=== PATIENT | female | born 1950 | race Caucasian/White ===

== ENCOUNTER → 2016-12-04 | Outpatient (CLI) | payer BC ==
[~2016-12-04] MED LIST: ALPR0.5T72 PO; AMLO1TAB4 PO; CALC-732 PO; CITA20TA12 PO; ENAL20TA PO; ESTR0.9T PO; HYDR1TAB PO; K-VANC1PB IV; LEVO137T24 PO; LIOT5TAB3 PO; LVT.112T PO; MELO-195 PO; NALT1TAB PO; OMEP-10 PO; PANT20TA2 PO; POTA20PI PO; [UNRECOGNIZED DRUG - CODE] PO
== END ==
LOC: RAD 10:05
PROVIDERS: ATTEND Nurse Practitioner
DX: Z12.31 Encounter for screening mammogram for malignant neoplasm of breast (principal)
CPT/HCPCS: 77067

== ENCOUNTER → 2017-03-05 | Outpatient (CLI) | payer BC ==
--- NOTE | 2017-03-05 13:49 | Diagnostic Imaging Report ---
Neck ultrasound. INDICATION: Thyroid cancer. FINDINGS: The thyroidectomy bed is evaluated with no underlying mass seen. No lymphadenopathy is seen around the thyroidectomy bed. IMPRESSION: No soft tissue mass is identified. Dictated by: Dictated on workstation # [id number]
== END ==
LOC: RAD 09:12
PROVIDERS: ATTEND Internal Medicine Endocrinology, Diabetes & Metabolism
DX: Z85.850 Personal history of malignant neoplasm of thyroid (principal)
CPT/HCPCS: 76536

== ENCOUNTER → 2018-02-16 | Outpatient (CLI) | payer MEDICARE ==
--- NOTE | 2018-02-16 13:56 | Diagnostic Imaging Report ---
INDICATION: Routine screening. Comparison is made with prior mammograms from 12/04/2016 and 11/09/2015. 2-D and 3-D bilateral screening mammography was performed with CAD. The current study was also evaluated with a Computer Aided Detection (CAD) system. FINDINGS: Both breasts show marked parenchymal heterogeneity and increased density, limiting the sensitivity of mammography. The parenchymal pattern is stable. Nodular density in the far posterior right breast on the MLO view just above the nipple line appears stable when compared with prior mammograms. No new mass or malignant-appearing microcalcifications are seen. The axillae are unremarkable. IMPRESSION: No mammographic features suspicious for malignancy are identified. ACR BI-RADS Category 2: Benign findings. Result letter will be mailed to the patient. Note: At least 10% of breast cancer is not imaged by mammography. Dictated by: Dictated on workstation # [id number]
== END ==
LOC: RAD 09:58
PROVIDERS: ATTEND Obstetrics & Gynecology
DX: Z12.31 Encounter for screening mammogram for malignant neoplasm of breast (principal)
CPT/HCPCS: 77067

== ENCOUNTER → 2018-03-23 | Outpatient (CLI) | payer MEDICARE ==
--- NOTE | 2018-03-23 09:26 | Diagnostic Imaging Report ---
EXAM: RIGHT UPPER QUADRANT ULTRASOUND DATE: March 23, 2018. COMPARISON: None. INDICATION: 67-year-old female, right upper quadrant abdominal pain. PROCEDURE: Two-dimensional grayscale and color doppler ultrasound examination of the right upper quadrant is performed. FINDINGS: Liver: The liver is of normal size and echotexture without solid or cystic masses. The main portal vein is patent with normal directional flow. Bile ducts and gallbladder: There is no pericholecystic fluid, gallbladder wall thickening or gallstones. The gallbladder wall measures 0.2 cm. There is no intrahepatic or extrahepatic biliary ductal dilation. The common bile duct measures 0.6 cm. Right kidney: Unremarkable right kidney. No hydronephrosis. The right kidney measures 11.9 cm x 4.3 cm x 4.9 cm. Pancreas: Normal visualized pancreas. IMPRESSION: 1. Unremarkable right upper quadrant abdominal ultrasound. Dictated by: Dictated on workstation # [id number]
== END ==
LOC: RAD 07:30
PROVIDERS: ATTEND Nurse Practitioner Family
DX: K81.9 Cholecystitis, unspecified (principal)
CPT/HCPCS: 76705

== ENCOUNTER → 2018-06-23 | Outpatient (CLI) | payer MEDICARE ==
--- NOTE | 2018-06-23 09:28 | Diagnostic Imaging Report ---
PROCEDURE: MRI lumbar spine. TECHNIQUE: Multiplanar, multisequence MRI of the lumbar spine was performed without contrast. INDICATION: Low back pain radiating to right lower extremity. COMPARISON: None. FINDINGS: There are five lumbar type vertebral bodies for the purposes of this report. Grade 1 retrolisthesis of L4 on L5. Alignment is otherwise unremarkable. Moderate diffuse degenerative endplate changes are greatest at L4-L5. Bone marrow signal is otherwise normal. No abnormal signal in the conus which terminates at L1-L2. Normal morphology of the cauda equina. No acute findings in the visualized abdomen or pelvis. L1-L2: No spinal canal, lateral recess or neural foraminal narrowing. L2-L3: Annular disc bulge and facet arthropathy contribute to mild bilateral lateral recess narrowing. No spinal canal or neural foraminal narrowing. L3-L4: Annular disc bulge and facet arthropathy contribute to mild bilateral neural foraminal narrowing. No substantial spinal canal narrowing. Disc space height loss also contributes to mild right neural foraminal narrowing. L4-L5: Right paracentral disc protrusion contributes to moderate right lateral recess and right neural foraminal narrowing. Disc space height loss also contributes to moderate left neural foraminal narrowing. No substantial spinal canal narrowing. L5-S1: Disc space height loss and facet arthropathy contribute to moderate right neural foraminal narrowing. No substantial spinal canal, lateral recess or left neural foraminal narrowing. IMPRESSION: 1. 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 No high-grade spinal canal narrowing. 2. No acute osseous findings. Dictated by: Dictated on workstation # [id number]
== END ==
LOC: RAD 08:05
PROVIDERS: ATTEND Family Medicine
DX: M47.27 Other spondylosis with radiculopathy, lumbosacral region (principal); M48.07 Spinal stenosis, lumbosacral region
CPT/HCPCS: 72148

== ENCOUNTER → 2019-03-29 | Outpatient (CLI) | payer MEDICARE ==
--- NOTE | 2019-03-29 10:56 | Diagnostic Imaging Report ---
Digital mammogram. Bilateral screening. This study was compared to the prior exam of 02/16/2018, 12/04/2016 and 11/09/2015. At this time there are no current complaints. The current study was also evaluated with a Computer Aided Detection (CAD) system. FINDINGS: The fibroglandular tissue in both breasts is heterogeneously dense. This does limit the sensitivity of this exam. Overall, there does not appear to have been any significant change when compared to the prior study. No primary or secondary sign of malignancy is noted. IMPRESSION: There is no radiographic evidence for malignancy. ACR BI-RADS Category 1: Negative. Result letter will be mailed to the patient. Note: At least 10% of breast cancer is not imaged by mammography. Dictated by: Dictated on workstation # [id number]
== END ==
LOC: RAD 07:08
PROVIDERS: ATTEND Obstetrics & Gynecology
DX: Z12.31 Encounter for screening mammogram for malignant neoplasm of breast (principal)
CPT/HCPCS: 77067

== ENCOUNTER → 2019-04-11 | Outpatient (CLI) | payer MEDICARE ==
[~2019-04-11] MED LIST changes: +AMLO1TAB99 PO; +CHOL200025 PO; +CHOL500049 PO; +CITA20TA9 PO; +CYAN500T62 PO; +GABA-488 PO; +HYDR25TA4 PO; +LEVO125T6 PO; +MELO15TA39 PO; +PANT40TA3 PO
--- NOTE | 2019-04-11 10:27 | Diagnostic Imaging Report ---
PROCEDURE: MRI left joint lower extremity without contrast. TECHNIQUE: Multiplanar, multisequence non contrast-enhanced MRI of the left lower extremity was accomplished. INDICATION: Left knee pain. No known injury. Chronic pain. COMPARISON: Radiograph from 04/11/2014. FINDINGS: Due to body habitus, the second alternate knee coil was used, resulting in some signal loss. No acute fracture is seen in the left knee. Alignment is normal. There is severe degenerative change in the medial and lateral compartments as well as in the patellofemoral compartment, with subchondral cystlike changes and large osteophytes. There is a moderate left knee joint effusion. The articular cartilage in the patellofemoral compartment demonstrates heterogeneity and surface irregularity without large full-thickness defects seen. The articular cartilage in the medial and lateral compartments demonstrate full-thickness cartilage loss at the weightbearing aspect, more pronounced medially. There is predominately horizontal tearing of the posterior horn of the medial meniscus, with maceration and complex tearing at the body. The lateral meniscus demonstrates complex tearing and maceration as well. The anterior and posterior cruciate ligaments are intact. The medial collateral ligament is intact. The lateral collateral ligamentous complex appears intact. The medial and lateral retinacula are intact. There is mild tendinopathy of the proximal patellar tendon. No soft tissue fluid collections or masses are seen. IMPRESSION: 1. Advanced tricompartmental degenerative changes in the left knee, most pronounced in the medial compartment. 2. Extensive complex tearing and maceration of the medial and lateral menisci. 3. Tendinopathy of the proximal patellar tendon. 4. Moderate left knee joint effusion. Dictated by: Dictated on workstation # [id number]
== END ==
LOC: RAD 07:51
PROVIDERS: ATTEND Family Medicine
DX: M17.12 Unilateral primary osteoarthritis, left knee (principal); S83.282A Other tear of lateral meniscus, current injury, left knee, initial encounter; S83.242A Other tear of medial meniscus, current injury, left knee, initial encounter; M67.864 Other specified disorders of tendon, left knee; M25.462 Effusion, left knee
CPT/HCPCS: 73721

== ENCOUNTER 2019-06-07 05:39 | Outpatient (CLI) | payer MEDICARE ==
[~2019-06-07] VITALS: Ht 180 cm; Wt 115.0 kg
[~2019-06-07 05:39] MED LIST changes: -AMLO1TAB99 PO; -CHOL200025 PO; -CHOL500049 PO; -CITA20TA9 PO; -CYAN500T62 PO; -GABA-488 PO; -HYDR25TA4 PO; -LEVO125T6 PO; -MELO15TA39 PO; -PANT40TA3 PO
[2019-06-07] MEDS ORDERED: CHOL500049 PO (15:06)
[2019-06-07] MEDS ORDERED: HYDR25TA4 PO (15:06)
[2019-06-07] MEDS ORDERED: CYAN500T62 PO (15:06)
[2019-06-07] MEDS ORDERED: GABA-488 PO (15:06)
[2019-06-07] MEDS ORDERED: CHOL200025 PO (15:06)
[2019-06-07] MEDS ORDERED: CITA20TA9 PO (15:06)
[2019-06-07] MEDS ORDERED: AMLO1TAB99 PO (15:06)
[2019-06-07] MEDS ORDERED: ESTR0.9T PO (15:06)
[2019-06-07] MEDS ORDERED: MELO15TA39 PO (15:06)
[2019-06-07] MEDS ORDERED: LEVO125T6 PO (15:06)
[2019-06-07] MEDS ORDERED: PANT40TA3 PO (15:06)
== END 2019-06-09 10:53 | disposition home or self-care (01) ==
LOC: PREOP 05:39
PROVIDERS: ATTEND Specialist
DX: Z01.818 Encounter for other preprocedural examination (principal)

== ENCOUNTER 2019-06-10 09:03 | Day surgery (SDC) | payer MEDICARE ==
[~2019-06-10] VITALS: Ht 180 cm; Wt 115.0 kg
[~2019-06-10 09:03] MED LIST changes: +AMLO1TAB99 PO; +CHOL200025 PO; +CHOL500049 PO; +CITA20TA9 PO; +CYAN500T62 PO; +GABA-488 PO; +HYDR25TA4 PO; +LEVO125T6 PO; +MELO15TA39 PO; +PANT40TA3 PO
[2019-06-10 09:05] VITALS: BP 129/78
[2019-06-10] MEDS ORDERED: POVIDONE (BETADINE) OPHTH SOLN 5% 30 ML OP ONE (09:15)
[2019-06-10] MEDS ORDERED: MOXIFLOXACIN OPHTH SOLN 5 MG/ML 0.3 ML SYRINGE OP ONE (09:15)
[2019-06-10] MEDS ORDERED: LIDOCAINE PF 1% 2 ML VIAL IR PRN (09:15)
[2019-06-10] MEDS ORDERED: TIMOLOL MALEATE 0.5% 5 ML (TIMOPTIC) BTL OU PRN (09:15)
[2019-06-10] MEDS: TETRACAINE 0.5% OPHTH SOLN 4 ML BTL (SINGLE DOSE ONLY) OU PRN ×4 (09:22→09:57)
[2019-06-10] MEDS: PHENYLEPHRINE 10% OPHTH (NEO-SYN) 5 ML BTL OU SCH ×3 (09:36→09:57)
[2019-06-10] MEDS: CYCLOPENTOLATE 1% (CYCLOGYL) 2 ML DROPS OP SCH ×3 (09:36→09:57)
--- NOTE | 2019-06-10 10:12 | Ophthalmologist Pre-Op Note ---
Pre-Operative Progress Note H&P Reviewed The H&P was reviewed, patient examined and no changes noted. Date H&P Reviewed: Jun 10, 2019 Time H&P Reviewed: 10:12 Pre-Op Dx Cataract, Left Eye LIGIA VILLANUEVA MD Jun 10, 2019 10:12
[2019-06-10] MEDS ORDERED: MIDAZOLAM 2 MG/2 ML (VERSED) VIAL ONE (10:13)
--- NOTE | 2019-06-10 10:41 | Ophthalmology Operative Report ---
Cataract removal/placement IOL PREOPERATIVE DIAGNOSIS: Cataract Left Eye POSTOPERATIVE DIAGNOSIS: Cataract Left Eye PROCEDURE: Cataract removal and placement of posterior chamber implant, left eye SURGEON: Tereso Villanueva ANESTHESIA: Topical with sedation COMPLICATIONS: None ESTIMATED BLOOD LOSS: Minimal DESCRIPTION OF PROCEDURE: After proper informed consent was obtained, the patient, a 68 female, was taken to the Operating Room and the left eye was anesthetized with tetracaine. The left eye was then prepped and draped in the usual manner. A wire lid speculum was placed. A paracentesis was made at the left hand position. Preservative free lidocaine was injected into the anterior chamber followed by viscoelastic. A clear corneal incision was made in the temporal position. A capsulorrhexis was preformed and the central nuclear and cortical material were removed. The posterior capsule was polished and an Daniel 18.0 SV25T0 was placed into the capsular bag. The residual viscoelastic was aspirated and balanced saline solution was injected into the anterior chamber. Moxifloxacin was injected into the anterior chamber. The wound was checked and found to be water tight. The patient tolerated the procedure well without complications. TERESO VILLANUEVA MD Jun 10, 2019 10:41
[2019-06-10 10:50] VITALS: BP 142/84
--- NOTE | 2019-06-10 15:08 | Anesthesia-General Post-Op ---
MAC Patient Condition Mental Status/LOC: Same as Preop Cardiovascular: Satisfactory Nausea/Vomiting: Absent Respiratory: Satisfactory Pain: Controlled Complications: Absent Post Op Complications Complications None Follow Up Care/Instructions Patient Instructions None needed. Anesthesiology Discharge Order Discharge Order Patient was seen this morning after the procedure and she was doing well, no complaints, stable vital signs, no apparent adverse anesthesia problems. KIN COLLADO DO Jun 10, 2019 15:08
== END 2019-06-10 10:50 | disposition home or self-care (01) ==
LOC: SDC 09:03
PROVIDERS: ATTEND Specialist
DX: H25.12 Age-related nuclear cataract, left eye (principal); G62.9 Polyneuropathy, unspecified; E03.9 Hypothyroidism, unspecified; I10 Essential (primary) hypertension; G47.33 Obstructive sleep apnea (adult) (pediatric); Z99.89 Dependence on other enabling machines and devices; Z88.2 Allergy status to sulfonamides; Z79.899 Other long term (current) drug therapy; Z90.89 Acquired absence of other organs; Z87.2 Personal history of diseases of the skin and subcutaneous tissue; Z83.518 Family history of other specified eye disorder; Z80.1 Family history of malignant neoplasm of trachea, bronchus and lung; Z82.3 Family history of stroke

== ENCOUNTER → 2019-06-29 | Outpatient (CLI) | payer MEDICARE ==
[~2019-06-29] VITALS: Ht 183 cm; Wt 116.0 kg
[~2019-06-29] MED LIST changes: +CATHETER FLUSH 10 ML SYR IV PRN; +METO50TA7 PO; +REGADENOSON 0.4 MG/5 ML SYR (LEXISCAN) IV ONE
[2019-06-29 09:30] VITALS: BP 133/80
--- NOTE | 2019-06-29 17:09 | STRESS TEST ---
DATE OF SERVICE: 06/29/2019 LEXISCAN MYOVIEW STRESS TEST REPORT REFERRING PHYSICIAN: Dr. Zuniga. Baseline heart rate is 51. Baseline blood pressure 133/80. Baseline EKG is sinus rhythm with no ischemic changes. In summary, the patient was injected with 10.95 mCi of technetium-99 Myoview and the resting images were obtained. Then, the patient received 0.4 mg of Lexiscan followed by 28.8 mCi of technetium-99 Myoview. Throughout the test, there were no EKG changes. The resting and stress images were reviewed and compared in the short axis, horizontal long axis, and vertical long axis views. Review of the images showed breast attenuation with decreased uptake involving the anterior wall and anterolateral wall with mild reversibility. SSS is 3, SDS 3, TID value 1.02. On the gated images, the left ventricle appeared to be normal size with normal contractility. Calculated ejection fraction 54%. CONCLUSION: 1. The patient tolerated Lexiscan well. 2. Breast attenuation with mild decreased uptake involving the anterior wall and anterolateral wall with mild reversibility. 3. Normal left ventricular size with normal contractility. Calculated ejection fraction 54%. Job ID: [id number] DocumentID: [id number] Dictated Date: 06/29/2019 14:40:17 Book Jacket Cover Machine Operator Date: 06/29/2019 17:08:53 Dictated By: LARRY HILLS MD
== END ==
LOC: CARD 07:24
PROVIDERS: ATTEND Internal Medicine Cardiovascular Disease
DX: I48.91 Unspecified atrial fibrillation (principal); I10 Essential (primary) hypertension
CPT/HCPCS: 78452; 93017

== ENCOUNTER 2019-06-30 09:03 | Outpatient (RCR) | payer MEDICARE ==
[~2019-06-30 09:03] MED LIST changes: -CATHETER FLUSH 10 ML SYR IV PRN; -METO50TA7 PO; -REGADENOSON 0.4 MG/5 ML SYR (LEXISCAN) IV ONE
[2019-07-02] MEDS ORDERED: METO50TA7 PO (14:18)
[2019-07-03] MEDS ORDERED: FLEC100T PO (08:51)
[2019-07-03] MEDS ORDERED: APIX5TAB PO (08:51)
[2019-09-14] MEDS ORDERED: ATOR20TA66 PO (09:56)
== END 2019-09-28 | disposition home or self-care (01) ==
LOC: CARD 09:03
PROVIDERS: ATTEND Internal Medicine Cardiovascular Disease
DX: I10 Essential (primary) hypertension (principal); I48.91 Unspecified atrial fibrillation; R07.9 Chest pain, unspecified; R00.2 Palpitations; I08.1 Rheumatic disorders of both mitral and tricuspid valves
CPT/HCPCS: 93225; 93226; 93306

== ENCOUNTER 2019-07-01 20:30 | Inpatient (IN) | payer MEDICARE ==
[~2019-07-01] VITALS: Ht 182 cm; Wt 121.3 kg
[2019-07-01] MEDS ORDERED: ASPIRIN 81 MG CHEW (CHILDREN'S ASA) PO ONE (20:45)
[2019-07-01] MEDS ORDERED: APIXABAN 5 MG (ELIQUIS) TABLET PO ONE (21:00)
[2019-07-01] MEDS ORDERED: dilTIAZem DRIP PRE-MIX 125 ML IV SCH (21:00)
--- NOTE | 2019-07-01 21:13 | ED Chest Pain ---
General Chief Complaint: Chest Pain Stated Complaint: CHEST PAIN, SHOULDER PAIN Source: patient Exam Limitations: no limitations History of Present Illness Date Seen by Provider: Jul 01, 2019 Time Seen by Provider: 20:38 Initial Comments Here with report of left upper chest pain that is read achy and has been going on for the last several hours as well as intermittent palpitations. She was recently diagnosed with atrial fibrillation over the last couple weeks and started on metoprolol and Eliquis. She has not taken her Eliquis dose tonight. She is currently wearing a Holter monitor for 48 hour monitoring. She did take her metoprolol today. Noted to have rapid heart rate on arrival. States that it's not normally rapid. She is due to get heart catheter on July 12 but has had echocardiogram and stress test. Patient denies any other symptoms including vomiting, breathing problems, sweating or weakness. Timing/Duration: 4-6 hours, constant Severity/Quality: moderate, aching Location: central (left upper chest) Radiation: no radiation Activities at Onset: none Prior CP/Workup: echocardiography, stress test (and ribs, diabetic and that'll positive blood sugar 400 old evidence) ASA po BOOKING CLERK: No NTG SL BOOKING CLERK: No Associated Symptoms: No abdominal pain, No diaphoresis, No fever/chills, No nausea/vomiting, No shortness of breath, No weakness Allergies and Home Medications Allergies Coded Allergies: Sulfa (Sulfonamide Antibiotics) (Verified Allergy, Unknown, 06/01/06) Home Medications Amlodipine/Atorvastatin 1 Each Tablet, 1 EACH PO HS, (Reported) Cholecalciferol (Vitamin D3) 2,000 Unit Tablet, 2,000 UNIT PO DAILY, (Reported) Cholecalciferol (Vitamin D3) 50,000 Unit Capsule, 50,000 UNIT PO TWICE MONTHLY, (Reported) Citalopram Hydrobromide 20 Mg Tablet, 20 MG PO DAILY, (Reported) Cyanocobalamin (Vitamin B-12) 500 Mcg Tablet, 500 MCG PO DAILY, (Reported) Estrogens, Conjugated 0.9 Mg Tablet, 0.9 MG PO DAILY, (Reported) Gabapentin 300 Mg Capsule, 300 MG PO TID, (Reported) Hydrochlorothiazide 25 Mg Tablet, 25 MG PO DAILY, (Reported) Levothyroxine Sodium 125 Mcg Tablet, 250 MCG PO DAILY, (Reported) Meloxicam 15 Mg Tablet, 15 MG PO DAILY, (Reported) Pantoprazole Sodium 40 Mg Tablet.dr, 40 MG PO DAILY, (Reported) Patient Home Medication List Home Medication List Reviewed: Yes Review of Systems Review of Systems Constitutional: see HPI; No chills, No fever EENTM: No Symptoms Reported Respiratory: No Symptoms Reported Cardiovascular: See HPI, Chest Pain, Irregular Heart Rate, Palpitations Gastrointestinal: No Symptoms Reported Genitourinary: No Symptoms Reported Musculoskeletal: no symptoms reported Skin: no symptoms reported All Other Systems Reviewed Negative Unless Noted: Yes Past Hghqtlz-Iotaoz-Jcwgjq Hx Past Med/Social Hx: Reviewed Nursing Past Med/Soc Hx Patient Social History Alcohol Use: Denies Use Recreational Drug Use: No Smoking Status: Never a Smoker Recent Foreign Travel: No Contact w/Someone Who Travel: No Immunizations Up To Date Date of Pneumonia Vaccine: Apr 13, 2013 Date of Influenza Vaccine: Apr 25, 2012 Past Medical History Surgeries: Yes Hysterectomy, Orthopedic, Thyroidectomy Respiratory: No Cardiac: Yes High Cholesterol, Hypertension Neurological: No Reproductive Disorders: Yes (OVARIAN CYST/FIBROID TUMOR/ENDOMETRIOSIS/COMPLETE HYSTERECTOMY) Genitourinary: No Gastrointestinal: Yes Hemorrhoids Musculoskeletal: Yes Endocrine: Yes Hypothyroidsim Cancer: Yes Thyroid Did You Recieve Any Treatments: Yes What Type of Treatment Did You: Surgical Intervention Family Medical History Reviewed Nursing Family Hx No Pertinent Family Hx Physical Exam Vital Signs Vital Signs - First Documented Capillary Refill : Height, Weight, BMI Height: 6'1.00" Weight: 240lbs. oz. 108.703333yk; 34.63 BMI Method: General Appearance: WD/WN, Mild Distress, Obese HEENT: PERRL/EOMI, Pharynx Normal Neck: Non Tender, Supple Respiratory: Lungs Clear, Normal Breath Sounds Cardiovascular: No Murmur, Irregularly Irregular, Tachycardia Gastrointestinal: Non Tender, Soft Extremity: Normal Range of Motion, Non Tender Neurologic/Psychiatric: Alert, Oriented x3 Skin: Normal Color, Warm/Dry Progress/Results/Core Measures Results/Orders Lab Results Laboratory Tests Test 07/01/19 20:56 Range/Units White Blood Count 9.9 4.3-11.0 10^3/uL Red Blood Count 4.72 4.35-5.85 10^6/uL Hemoglobin 12.6 11.5-16.0 G/DL Hematocrit 39 35-52 % Mean Corpuscular Volume 83 80-99 FL Mean Corpuscular Hemoglobin 27 25-34 PG Mean Corpuscular Hemoglobin Concent 32 32-36 G/DL Red Cell Distribution Width 15.6 H 10.0-14.5 % Platelet Count 232 130-400 10^3/uL Mean Platelet Volume 12.0 H 7.4-10.4 FL Neutrophils (%) (Auto) 48 42-75 % Lymphocytes (%) (Auto) 41 12-44 % Monocytes (%) (Auto) 9 0-12 % Eosinophils (%) (Auto) 2 0-10 % Basophils (%) (Auto) 0 0-10 % Neutrophils # (Auto) 4.7 1.8-7.8 X 10^3 Lymphocytes # (Auto) 4.1 H 1.0-4.0 X 10^3 Monocytes # (Auto) 0.9 0.0-1.0 X 10^3 Eosinophils # (Auto) 0.2 0.0-0.3 10^3/uL Basophils # (Auto) 0.0 0.0-0.1 10^3/uL Prothrombin Time 13.3 12.2-14.7 SEC INR Comment 1.0 0.8-1.4 Activated Partial Thromboplast Time 37 H 24-35 SEC Sodium Level 137 135-145 MMOL/L Potassium Level 3.6 3.6-5.0 MMOL/L Chloride Level 104 98-107 MMOL/L Carbon Dioxide Level 24 21-32 MMOL/L Anion Gap 9 5-14 MMOL/L Blood Urea Nitrogen 18 7-18 MG/DL Creatinine 0.73 0.60-1.30 MG/DL Estimat Glomerular Filtration Rate > 60 BUN/Creatinine Ratio 25 Glucose Level 108 H 70-105 MG/DL Calcium Level 9.0 8.5-10.1 MG/DL Corrected Calcium 9.2 8.5-10.1 MG/DL Magnesium Level 1.9 1.6-2.4 MG/DL Total Bilirubin 0.3 0.1-1.0 MG/DL Aspartate Amino Transf (AST/SGOT) 14 5-34 U/L Alanine Aminotransferase (ALT/SGPT) 11 0-55 U/L Alkaline Phosphatase 88 40-136 U/L Myoglobin 18.8 10.0-92.0 NG/ML Troponin I < 0.028 <0.028 NG/ML Total Protein 7.0 6.4-8.2 GM/DL Albumin 3.7 3.2-4.5 GM/DL My Orders Orders - HORTENSIA GREGG MD Cbc With Automated Diff (07/01/19 20:38) Magnesium (07/01/19 20:38) Chest 1 View, Ap/Pa Only (07/01/19 20:38) Ekg Tracing (07/01/19 20:38) Comprehensive Metabolic Panel (07/01/19 20:38) Myoglobin Serum (07/01/19 20:38) Protime With Inr (07/01/19 20:38) Partial Thromboplastin Time (07/01/19 20:38) O2 (07/01/19 20:38) Monitor-Rhythm Ecg Trace Only (07/01/19 20:38) Lipid Panel (07/02/19 06:00) Ed Iv/Invasive Line Start (07/01/19 20:38) Troponin I (07/01/19 20:38) Aspirin Chewable Tablet (Baby Aspirin Ch (07/01/19 20:45) Diltiazem Injection (Cardizem Injection) (07/01/19 21:00) Diltiazem Drip Pre-Mix (Cardizem Drip Pr (07/01/19 21:00) Apixaban Tablet (Eliquis Tablet) (07/01/19 21:00) Medications Given in ED Current Medications Medications Dose Ordered Sig/Chari Route Start Time Stop Time Status Last Admin Dose Admin Apixaban 5 mg ONCE ONCE PO 07/01/19 21:00 07/01/19 21:01 DC 07/01/19 21:03 5 MG Aspirin 324 mg ONCE ONCE PO 07/01/19 20:45 07/01/19 20:46 DC 07/01/19 20:43 324 MG Diltiazem HCl 20 mg ONCE ONCE IVP 07/01/19 21:00 07/01/19 21:01 DC 07/01/19 21:04 20 MG Vital Signs/I&O 07/01/19 07/01/19 20:35 20:35 Temp 37.2 Pulse 134 Resp 20 B/P (MAP) 145/117 (126) O2 Delivery Room Air Room Air Progress Progress Note : Progress Note Seen and evaluated. Chest pain protocol initiated. Aspirin 324 mg by mouth ordered. Monitor patient. I did discuss the case with Dr. Lozada at 2046: We will go ahead and initiate Eliquis 5 mg by mouth now. Patient will be nothing by mouth after midnight. Cardizem bolus of 20 mg IV drip started at 10 mg an hour. Anticipate admission to the ICU. Pending labs. We will discuss with Dr. Turpin, on-call hospitalist when labs are complete. Monitor patient. 2155: I did discuss the case with Dr. Turpin and she accepts patient for admission, inpatient status. Heart rate currently 70s to 80s with blood pressure 112/87 and chest pain essentially resolved. Initial set negative. Chest x-ray had some question of right basilar findings versus body habitus. Patient has no other findings are suspicious for pneumonia and I think this is artifact at this point. Admit, inpatient status. Patient and family agree with plan. Initial ECG Impression Date: Jul 01, 2019 Initial ECG Impression Time: 20:41 Initial ECG Rate: 107 Initial ECG Rhythm: A Fib/Flutter Initial ECG Impression: Atrial Fibrillation w/RVR Comment A. fib with rapid ventricular response. Leftward axis. No evidence of ST elevation [place]. Change from previous which was sinus rhythm on 04/24/12. Interpreted by me. Diagnostic Imaging Diagonstic Imaging: Xray Plain Films/CT/US/NM/MRI: chest Comments [facility], [place] NAME: NICK HARRY V [facility] REC#: [id number] PT STATUS: REG ER : 1950 PHYSICIAN: HORTENSIA GREGG MD ADMIT DATE: 07/01/19/ER Draft Date of Exam:07/01/19 CHEST 1 VIEW, AP/PA ONLY CHEST 1 VIEW, AP/PA ONLY Indication: Chest pain. Comparison: 05/18/2012 Findings: Heterogeneous opacities are present in the right lung base. Please note that the posterior lower lobes are poorly evaluated by portable radiography. No pleural effusion or pneumothorax. Normal cardiomediastinal silhouette. Impression: 1. Right basilar heterogeneous opacities could represent pneumonia or aspiration in the appropriate setting. Alternatively, this could be artifactual due to patient's body habitus. Dictated on workstation # [id number] Dict: 07/01/192131 Trans: 07/01/192133 [facility] [id number] Interpreted by: KIRTI CRUM MD Electronically signed by: Departure Communication (Admissions) Time/Spoke to Admitting Phy: 21:56 Time/Spoke to Consulting Phy: 20:47 Impression Primary Impression: Atrial fibrillation with rapid ventricular response Additional Impression: Chest pain Qualified Codes: R07.9 - Chest pain, unspecified Disposition: 09 ADMITTED INPATIENT Condition: Stable Admissions Decision to Admit Reason: Admit from ER (General) Decision to Admit/Date: Jul 01, 2019 Time/Decision to Admit Time: 20:47 Departure-Patient Inst. Referrals: HANSA ONEIL MD (PCP/Family) Primary Care Physician HORTENSIA GREGG MD Jul 01, 2019 21:13
[2019-07-01 21:16] LABS: PROTHROMBIN TIME PATIENT 13.3 SEC (12.2-14.7)
[2019-07-01 21:20] LABS: BASOPHILS % (AUTO) 0 % (0-10); EOSINOPHILS # (AUTO) 0.2 10^3/uL (0.0-0.3); EOSINOPHILS % (AUTO) 2 % (0-10); HEMATOCRIT 39 % (35-52); HEMOGLOBIN 12.6 G/DL (11.5-16.0); LYMPHOCYTES # (AUTO) 4.1 X 10^3 (1.0-4.0); LYMPHOCYTES % (AUTO) 41 % (12-44); MEAN CORPUSCULAR HEMOGLOBIN 27 PG (25-34); MEAN CORPUSCULAR HGB CONC 32 G/DL (32-36); MEAN CORPUSCULAR VOLUME 83 FL (80-99); MONOCYTES # (AUTO) 0.9 X 10^3 (0.0-1.0); MONOCYTES % (AUTO) 9 % (0-12); NEUTROPHILS # (AUTO) 4.7 X 10^3 (1.8-7.8); NEUTROPHILS % (AUTO) 48 % (42-75); PLATELET COUNT 232 10^3/uL (130-400); RED CELL DISTRIBUTION WIDTH 15.6 % (10.0-14.5); WHITE BLOOD COUNT 9.9 10^3/uL (4.3-11.0)
[2019-07-01 21:35] LABS: ALANINE AMINOTRANSFERASE 11 U/L (0-55); ALBUMIN 3.7 GM/DL (3.2-4.5); ALKALINE PHOSPHATASE 88 U/L (40-136); BILIRUBIN,TOTAL 0.3 MG/DL (0.1-1.0); BUN/CREATININE RATIO 25; CARBON DIOXIDE 24 MMOL/L (21-32); CHLORIDE 104 MMOL/L (98-107); CREATININE SERUM 0.73 MG/DL (0.60-1.30); GFR ESTIMATED > 60; GLUCOSE 108 MG/DL (70-105); MAGNESIUM 1.9 MG/DL (1.6-2.4); POTASSIUM 3.6 MMOL/L (3.6-5.0); SODIUM 137 MMOL/L (135-145)
--- NOTE | 2019-07-01 21:35 | Diagnostic Imaging Report ---
CHEST 1 VIEW, AP/PA ONLY Indication: Chest pain. Comparison: 05/18/2012 Findings: Heterogeneous opacities are present in the right lung base. Please note that the posterior lower lobes are poorly evaluated by portable radiography. No pleural effusion or pneumothorax. Normal cardiomediastinal silhouette. Impression: 1. Right basilar heterogeneous opacities could represent pneumonia or aspiration in the appropriate setting. Alternatively, this could be artifactual due to patient's body habitus. Dictated by: Dictated on workstation # [id number]
[2019-07-01] MEDS ORDERED: LACTATED RINGERS 0 ML IV ONE (23:22)
[2019-07-01 23:30] VITALS: BP_SYST 111; BP_SYST 127; BP_DIAS 68; BP_DIAS 70
[2019-07-01 23:45] VITALS: BP 128/64
[2019-07-01] MEDS ORDERED: LACTATED RINGERS 1,000 ML IV SCH (23:45)
--- NOTE | 2019-07-01 23:53 | NUR ---
NICK HARRY V admitted to room CU10-1, with an admitting diagnosis of Afib RVR, on 07/01/19 [address] [facility] , accompanied by .NICK HARRY V introduced to surroundings, call light, bed controls, phone, TV, temperature control, lights, meal times, smoking policy, visitor policy, side rail policy, bathrooms and showers. Patient Rights given to patient in the handbook. NICK HARRY V verbalizes understanding that [facility] is not responsible for the loss or damage to any personal effects or valuables that are kept in the patients possession during their hospitalization. The following Patient Care Plans were discussed with the patient: Discharge Planning, diet,activity, and pain. NICK HARRY V verbalizes understanding of Interdisciplinary Patient Education. Patient and/or family were informed about the Rapid Response Team and its purpose.
[2019-07-01] MEDS: dilTIAZem DRIP 125 MG/125 ML DRIP IV SCH (23:58)
[2019-07-02] VITALS (29 sets, daily range): BP systolic 98–136; BP diastolic 56–100
[2019-07-02] MEDS: NS IV 1000 ML 1,000 ML IV SCH ×5 (00:30→19:40)
[2019-07-02] MEDS ORDERED: morphine INJ 4 MG/ML 1 ML (VIAL/SYRINGE) IV PRN (04:00)
[2019-07-02 04:03] LABS: BASOPHILS % (AUTO) 0 % (0-10); EOSINOPHILS # (AUTO) 0.2 10^3/uL (0.0-0.3); EOSINOPHILS % (AUTO) 3 % (0-10); HEMATOCRIT 39 % (35-52); HEMOGLOBIN 12.2 G/DL (11.5-16.0); LYMPHOCYTES # (AUTO) 3.9 X 10^3 (1.0-4.0); LYMPHOCYTES % (AUTO) 45 % (12-44); MEAN CORPUSCULAR HEMOGLOBIN 26 PG (25-34); MEAN CORPUSCULAR HGB CONC 31 G/DL (32-36); MEAN CORPUSCULAR VOLUME 84 FL (80-99); MEAN PLATELET VOLUME 11.9 FL (7.4-10.4); MONOCYTES # (AUTO) 0.8 X 10^3 (0.0-1.0); MONOCYTES % (AUTO) 9 % (0-12); NEUTROPHILS # (AUTO) 3.6 X 10^3 (1.8-7.8); NEUTROPHILS % (AUTO) 43 % (42-75); PLATELET COUNT 209 10^3/uL (130-400); RED CELL DISTRIBUTION WIDTH 15.6 % (10.0-14.5); WHITE BLOOD COUNT 8.5 10^3/uL (4.3-11.0)
[2019-07-02 04:28] LABS: ALANINE AMINOTRANSFERASE 10 U/L (0-55); ALBUMIN 3.2 GM/DL (3.2-4.5); ALKALINE PHOSPHATASE 78 U/L (40-136); BILIRUBIN,TOTAL 0.3 MG/DL (0.1-1.0); BUN/CREATININE RATIO 24; CALCIUM 8.6 MG/DL (8.5-10.1); CARBON DIOXIDE 24 MMOL/L (21-32); CHLORIDE 106 MMOL/L (98-107); CHOLESTEROL 127 MG/DL (< 200); CREATININE SERUM 0.67 MG/DL (0.60-1.30); GFR ESTIMATED > 60; GLUCOSE 104 MG/DL (70-105); HDL CHOLESTEROL 58 MG/DL (40-60); MAGNESIUM 1.8 MG/DL (1.6-2.4); PHOSPHORUS 2.9 MG/DL (2.3-4.7); POTASSIUM 3.3 MMOL/L (3.6-5.0); SODIUM 138 MMOL/L (135-145); TOTAL PROTEIN 6.2 GM/DL (6.4-8.2); TRIGLYCERIDES 94 MG/DL (<150); VLDL CHOLESTEROL 19 MG/DL (5-40)
[2019-07-02] MEDS: POTASSIUM CL 10MEQ/50ML IVPB 50 ML IV SCH ×5 (05:12→08:15)
[2019-07-02] MEDS: MAGNESIUM 1 GM/100 ML IVPB 100 ML IV SCH (05:12)
[2019-07-02] MEDS: KCL 20 MEQ TAB (K-DUR) PO SCH (05:12)
--- NOTE | 2019-07-02 07:23 | Diagnostic Imaging Report ---
INDICATION: A-fib. Comparison is made with prior examination from 06/23/2019. FINDINGS: There is cardiomegaly. There appears to be some venous congestion. There is a patchy right basilar infiltrate. There is no pleural effusion or pneumothorax. Mediastinum is unremarkable. IMPRESSION: Right basilar pneumonia Cardiomegaly and mild venous congestion. Dictated by: Dictated on workstation # [id number]
[2019-07-02] MEDS ORDERED: FLU QUADRIvalent (5+ YOA) 2019-2020 (AFLURIA) 0.5 ML IM ONE ×2 (07:45→15:17)
[2019-07-02] MEDS: APIXABAN 5 MG (ELIQUIS) TABLET PO SCH ×2 (08:09→20:46)
--- NOTE | 2019-07-02 08:59 | Consultation-Cardiology ---
HPI-Cardiology Cardiology Consultation Date of Consultation 07/02/19 Date of Admission Time Seen by Provider: 08:56 Indication: Chest pain HPI 68-year-old lady with history of hypertension, hyperlipidemia, paroxysmal atrial fibrillation, had borderline stress test and she is on the schedule for cardiac catheterization, started to have palpitation and feeling rapid heart rate that she started to have chest pain described it as dull in nature on the left side of her chest radiating to the left shoulder. Came into the emergency room and started on Cardizem drip, heart rate is better, she is feeling better. Still in atrial fibrillation. Home Medications & Allergies Allergies: Coded Allergies: Sulfa (Sulfonamide Antibiotics) (Verified Allergy, Unknown, 06/01/06) Home Medication List Reviewed: Yes YDS-Oydwda-Szthru Hx Patient Social History Marital Status: Employed/Student: employed Alcohol Use: Denies Use Recreational Drug Use: No Smoking Status: Never a Smoker Recent Foreign Travel: No Recent Infectious Disease Expo: No Recent Hopitalizations: No (\\) Immunizations Up To Date Date of Pneumonia Vaccine: Apr 13, 2013 Date of Influenza Vaccine: Apr 25, 2012 Past Medical History Discussed below Family Medical History Significant Family History: No Pertinent Family Hx Family History: FH: Raynaud's phenomenon G8 SISTER, Onset:Unknown FH: hypothyroidism G8 SISTER, Onset:Unknown FH: lung cancer 19 FATHER, , Onset:50's - 60 FH: macular degeneration 19 MOTHER, Onset:Unknown FH: multiple sclerosis G8 BROTHER, Onset:50's - 60 FH: stroke 19 FATHER, , Onset:50's - 60 Hypertension 19 FATHER, , Onset:40's - 50 19 MOTHER, Onset:Unknown TIAs G8 SISTER, Onset:20's - 25 Review of Systems-General Review of Systems Constitutional: see HPI; No chills, No fever EENTM: see HPI, no symptoms reported Respiratory: see HPI; No cough, No dyspnea on exertion, No hemoptysis, No orthopnea, No phlegm; short of breath; No stridor, No wheezing, No other Cardiovascular: see HPI, chest pain; No edema, No Hx of Intervention; palpitations; No syncope, No vascular heart diseas, No other Gastrointestinal: no symptoms reported, see HPI Genitourinary: no symptoms reported, see HPI Musculoskeletal: no symptoms reported, see HPI Skin: no symptoms reported, see HPI Psychiatric/Neurological: No Symptoms Reported, See HPI All Other Systems Reviewed Negative Unless Noted: Yes Reviewed Test Results Reviewed Test Results Lab Laboratory Tests Test 07/01/19 20:56 07/02/19 03:32 Range/Units White Blood Count 9.9 8.5 4.3-11.0 10^3/uL Red Blood Count 4.72 4.64 4.35-5.85 10^6/uL Hemoglobin 12.6 12.2 11.5-16.0 G/DL Hematocrit 39 39 35-52 % Mean Corpuscular Volume 83 84 80-99 FL Mean Corpuscular Hemoglobin 27 26 25-34 PG Mean Corpuscular Hemoglobin Concent 32 31 L 32-36 G/DL Red Cell Distribution Width 15.6 H 15.6 H 10.0-14.5 % Platelet Count 232 209 130-400 10^3/uL Mean Platelet Volume 12.0 H 11.9 H 7.4-10.4 FL Neutrophils (%) (Auto) 48 43 42-75 % Lymphocytes (%) (Auto) 41 45 H 12-44 % Monocytes (%) (Auto) 9 9 0-12 % Eosinophils (%) (Auto) 2 3 0-10 % Basophils (%) (Auto) 0 0 0-10 % Neutrophils # (Auto) 4.7 3.6 1.8-7.8 X 10^3 Lymphocytes # (Auto) 4.1 H 3.9 1.0-4.0 X 10^3 Monocytes # (Auto) 0.9 0.8 0.0-1.0 X 10^3 Eosinophils # (Auto) 0.2 0.2 0.0-0.3 10^3/uL Basophils # (Auto) 0.0 0.0 0.0-0.1 10^3/uL Prothrombin Time 13.3 12.2-14.7 SEC INR Comment 1.0 0.8-1.4 Activated Partial Thromboplast Time 37 H 24-35 SEC Sodium Level 137 138 135-145 MMOL/L Potassium Level 3.6 3.3 L 3.6-5.0 MMOL/L Chloride Level 104 106 98-107 MMOL/L Carbon Dioxide Level 24 24 21-32 MMOL/L Anion Gap 9 8 5-14 MMOL/L Blood Urea Nitrogen 18 16 7-18 MG/DL Creatinine 0.73 0.67 0.60-1.30 MG/DL Estimat Glomerular Filtration Rate > 60 > 60 BUN/Creatinine Ratio 25 24 Glucose Level 108 H 104 70-105 MG/DL Calcium Level 9.0 8.6 8.5-10.1 MG/DL Corrected Calcium 9.2 9.2 8.5-10.1 MG/DL Magnesium Level 1.9 1.8 1.6-2.4 MG/DL Total Bilirubin 0.3 0.3 0.1-1.0 MG/DL Aspartate Amino Transf (AST/SGOT) 14 14 5-34 U/L Alanine Aminotransferase (ALT/SGPT) 11 10 0-55 U/L Alkaline Phosphatase 88 78 40-136 U/L Myoglobin 18.8 10.0-92.0 NG/ML Troponin I < 0.028 <0.028 NG/ML Total Protein 7.0 6.2 L 6.4-8.2 GM/DL Albumin 3.7 3.2 3.2-4.5 GM/DL Phosphorus Level 2.9 2.3-4.7 MG/DL Triglycerides Level 94 <150 MG/DL Cholesterol Level 127 < 200 MG/DL LDL Cholesterol Direct 62 1-129 MG/DL VLDL Cholesterol 19 5-40 MG/DL HDL Cholesterol 58 40-60 MG/DL Physical Exam Physical Exam Vital Signs Vital Signs - First Documented 07/01/19 23:16 Pulse Ox 98 Capillary Refill : Less Than 3 Seconds Height, Weight, BMI Height: 6'1.00" Weight: 240lbs. oz. 108.762281dn; 36.49 BMI Method: General Appearance: WD/WN, Mild Distress, Obese Eyes: Bilateral Eye Normal Inspection, Bilateral Eye PERRL, Bilateral Eye EOMI HEENT: PERRL/EOMI, Pharynx Normal Neck: Non Tender, Supple Respiratory: Lungs Clear, Normal Breath Sounds Cardiovascular: No Murmur, Irregularly Irregular, Tachycardia Gastrointestinal: Non Tender, Soft Back: Normal Inspection, No CVA Tenderness, No Vertebral Tenderness Extremity: Normal Range of Motion, Non Tender Neurologic/Psychiatric: Alert, Oriented x3 Skin: Normal Color, Warm/Dry Lymphatic: No Adenopathy A/P-Cardiology Admission Diagnosis Chest pain Atrial fibrillation Tachycardia Hypertension Assessment/Plan Chest pain nonspecific etiology, resembling angina, multiple risk factors for coronary artery disease, stress test showed breast attenuation with mild decreased uptake involving the anterior wall and anterolateral wall with mild reversibility, SSS is 3, SDS 3, ejection fraction 54 percent, patient was on the schedule for outpatient cardiac catheterization, I will proceed with a cardiac catheterization today. Paroxysmal atrial fibrillation of unknown duration, she has a Holter monitor in January 2010 showing sinus rhythm with multiple episodes of paroxysmal atrial tachycardia and atrial fibrillation was short runs at that time. Currently in a trial fibrillation with rapid ventricular response, rate is better controlled on Cardizem drip. Continue to monitor Hypertension, restart home medication monitor blood pressure Hyperlipidemia maintained on Lipitor 20 mg daily, monitor lipids Gastroesophageal reflux disease maintained on Protonix Anxiety maintained on citalopram Mild bilateral carotid stenosis, continue to monitor Hypothyroidism maintained on thyroid replacement managed by Dr. Hubbard next Peripheral neuropathy, followed by primary care physician Clinical Quality Measures AMI/AHF: ASA po Prior to arrival: No DVT/VTE Risk/Contraindication: Risk Factor Score Per Nursin RFS Level Per Nursing on Admit: 4+=Very High LARRY HILLS MD Jul 02, 2019 08:59
--- NOTE | 2019-07-02 09:00 | Cardiac Procedure Note-CS/ASA ---
Pre-Procedure Note Pre-Op Procedure Note H&P Reviewed The H&P was reviewed, patient examined and no changes noted. Date H&P Reviewed: Jul 02, 2019 Time H&P Reviewed: 09:00 Conscious Sedation Pre-Proced Time 09:00 ASA Score 3 For ASA 3 and 4: Consider anesthesia and medical clearance. Also, for patients with a history of failed moderate sedation consider anesthesia. Airway Lungs Heart ASA score ASA 1: a normal healthy patient ASA 2: a patient with a mild systemic disease (mid diabetes, controlled hypertension, obesity x ASA 3: a patient with a severe systemic disease that limits activity (angina, COPD, prior Myocardial infarction) ASA 4: a patient with an incapacitating disease that is a constant threat to life (CHF, renal failure) ASA 5: a moribund patient not expected to survive 24 hrs. (ruptured aneurysm) ASA 6: a declared brain- patient whose organs are being harvested. For emergent operations, add the letter E after the classification Mallampati Classification Grade 3 Sedation Plan Analgesia, Amnesia, Plan communicated to team members, Discussed options with patient/fam, Discussed risks with patient/fam The patient is an appropriate candidate to undergo the planned procedure, sedation, and anesthesia. The patient immediately re-assessed prior to indication. LARRY HILLS MD Jul 02, 2019 09:00
--- NOTE | 2019-07-02 09:13 | History & Physical-Hospitalist ---
History of Present Illness HPI/Chief Complaint Pt Source: patient Date Seen 07/02/19 Time Seen by a Provider: 09:08 Attending Physician Remy Turpin MD PCP John Forte MD Referring Physician Date of Admission Jul 01, 2019 at 20:42 Home Medications & Allergies Home Medications Reviewed patient Home Medication Reconciliation performed by pharmacy medication reconciliations donor floor technician and/or nursing. Patients Allergies have been reviewed. Allergies Allergies Coded Allergies Sulfa (Sulfonamide Antibiotics) (Verified Allergy, Unknown, 06/01/06) Past Akhagfh-Nhgtyh-Lhanoe Hx Past Med/Social Hx: Reviewed Nursing Past Med/Soc Hx Patient Social History Marrital Status: Employed/Student: employed Alcohol Use: Denies Use Recreational Drug Use: No Smoking Status: Never a Smoker Recent Foreign Travel: No Contact w/other who traveled: No Recent Hopitalizations: No (\\) Recent Infectious Disease Expo: No Immunizations Up To Date Date of Pneumonia Vaccine: Apr 13, 2013 Date of Influenza Vaccine: Apr 25, 2012 Past Medical History Surgeries: Hysterectomy, Orthopedic, Thyroidectomy Cardiac: High Cholesterol, Hypertension : No Reproductive: Yes (OVARIAN CYST/FIBROID TUMOR/ENDOMETRIOSIS/COMPLETE HYSTERECTOMY) Sexually Transmitted Disease: No Hysterectomy Gastrointestinal: Hemorrhoids Endocrine: Hypothyroidsim HEENT: Cataract Cancer: Thyroid Did You Recieve Any Treatments: Yes What Type of Treatment Did You: Surgical Intervention History of Blood Disorders: No Family History Reviewed Nursing Family Hx FH: Raynaud's phenomenon G8 SISTER, Onset:Unknown FH: hypothyroidism G8 SISTER, Onset:Unknown FH: lung cancer 19 FATHER, , Onset:50's - 60 FH: macular degeneration 19 MOTHER, Onset:Unknown FH: multiple sclerosis G8 BROTHER, Onset:50's - 60 FH: stroke 19 FATHER, , Onset:50's - 60 Hypertension 19 FATHER, , Onset:40's - 50 19 MOTHER, Onset:Unknown TIAs G8 SISTER, Onset:20's - 25 No Pertinent Family Hx Physical Exam Physical Exam Vital Signs Vital Signs - First Documented 07/01/19 23:16 Pulse Ox 98 Capillary Refill : Less Than 3 Seconds Height, Weight, BMI Height: 6'1.00" Weight: 240lbs. oz. 108.413603zm; 36.49 BMI Method: Results Results/Procedures Labs Laboratory Tests 07/01/19 20:56 07/02/19 03:32 Patient resulted labs reviewed. Assessment/Plan Admission Diagnosis Admission Status: Inpatient Order (span 2 midnights) Diagnosis/Problems Diagnosis/Problems (1) Atrial fibrillation with rapid ventricular response Status: Acute (2) Chest pain Status: Acute Qualifiers: Chest pain type: other chest pain Qualified Codes: R07.89 - Other chest pain (3) Essential (primary) hypertension Status: Chronic (4) Hypothyroidism Status: Chronic Qualifiers: Hypothyroidism type: postoperative Qualified Codes: E89.0 - Postprocedural hypothyroidism (5) Lymphedema Status: Chronic (6) Chronic back pain greater than 3 months duration Status: Chronic (7) BMI 36.0-36.9,adult Status: Chronic Clinical Quality Measures AMI/AHF: ASA po Prior to arrival: No DVT/VTE Risk/Contraindication: Risk Factor Score Per Nursin RFS Level Per Nursing on Admit: 4+=Very High REMY TURPIN MD Jul 02, 2019 09:12
[2019-07-02] MEDS ORDERED: LIDOCAINE 1% INJ 20 ML 20 ML VIAL ONE (09:15)
[2019-07-02] MEDS ORDERED: HEParin (CATH LAB) 2,000 ML IV ONE (09:15)
[2019-07-02] MEDS ORDERED: fentaNYL INJECTION 100 MCG/2 ML AMP ONE (09:43)
[2019-07-02] MEDS ORDERED: MIDAZOLAM 5 MG/5 ML (VERSED) VIAL ONE (09:43)
--- NOTE | 2019-07-02 09:45 | NUR ---
pt to biology laboratory assistant for heart cath with biology laboratory assistant staff.
--- NOTE | 2019-07-02 10:44 | Cardiac Cath Report ---
Cardiac Cath Report Physician (s)/Screen Door Maker (s) Physician LARRY HILLS MD Pre-Procedure Diagnosis Pre-Procedure Diagnosis: Chest pain Post-Procedure Note Procedure Start Date: Jul 02, 2019 Name of Procedure: Left heart catheterization Left ventriculogram Aortic arch angiogram Findings/Procedure Note PROCEDURE NOTE: 68-year-old lady with paroxysmal atrial fibrillation, admitted with acute chest pain and palpitation, noted to be in atrial fibrillation with rapid ventricular response, she was started on Cardizem drip. Maintained on oral anticoagulation. Had underlying abnormal stress test and she was scheduled for a cardiac catheter as an outpatient, I decided to proceed with the procedure during this admission. After explaining the procedure to the patient, all pros and cons were explained, all questions were answered. The patient signed the consent and then she was placed on the cardiac catheterization laboratory. Groin was prepped SL fashion local anesthesia was used. Sheath placed in the right femoral artery. Gentry right and left catheter were used to access the coronary system. Pigtail was used to access the left ventricular cavity. Left ventriculogram was done Aortic arch angiogram was done At the end of the procedure the sheath was removed. Closure device was used FINDINGS: Hemodynamics LV 122/16, end-diastolic pressure of 16 Aorta 120/75 mean of 73 ANATOMY: Left Main is free of obstructive disease Left Anterior Descending is slightly tortuous with slow flow no significant obstructive disease Left Circumflex is free of obstructive disease Right Coronory Artery is dominant with mild disease nonobstructive disease LV Gram was done showing normal left ventricular size, normal systolic function, estimated ejection fraction 50 percent Aorta evaluation done aortic arch angiogram showed slightly prominent ascending aorta, mild calcification at the shared ostium of the left carotid/innominate artery, left subclavian is normal CONCLUSION: 1. Mild coronary artery disease with slow flow in the LAD nonobstructive disease 2. Normal left ventricular size, normal contractile CT estimated ejection fraction 50 percent 3. Slightly prominent ascending aorta and some desiccation of the origin of the left carotid artery DISCUSSION AND RECOMMENDATION: Patient was started on flecainide, continue with Eliquis, would consider cardioversion in the morning. Anesthesia Type: Conscious Sedation Estimated blood loss (mL): 15 ml Contrast Amount: 65 ml Total Radiation Dose: 449 mGy Post-Procedure Diagnosis Post-operative diagnosis: Chest pain Coronary artery disease Atrial fibrillation Hypertension (1) Atrial fibrillation with rapid ventricular response (2) Chest pain Qualifiers: Qualified Codes: R07.89 - Other chest pain (3) Essential (primary) hypertension (4) Hypothyroidism Qualifiers: Qualified Codes: E89.0 - Postprocedural hypothyroidism (5) Lymphedema (6) Chronic back pain greater than 3 months duration (7) BMI 36.0-36.9,adult LARRY HILLS MD Jul 02, 2019 10:44
[2019-07-02] MEDS ORDERED: PATIENT MAY USE OWN MEDS, ALL PO SCH (10:45)
--- NOTE | 2019-07-02 11:05 | NUR ---
pt returns from labor crew supervisor with right groin minxed and dressing dry and in tact.
[2019-07-02] MEDS: FLECAINIDE 100 MG (TAMBOCOR) TAB PO SCH ×2 (12:45→20:46)
--- NOTE | 2019-07-02 14:16 | History & Physical-Hospitalist ---
History of Present Illness HPI/Chief Complaint Pt is a 68-year-old female with a past medical history of hypertension and newly diagnosed atrial fibrillation who presented to the emergency department due to chest pain and racing heart rate. She states that she recently got an apple watch to monitor her heart rate and rhythm alerted her to be in A. fib. Prior to that she had felt a chest discomfort and shoulder pain since early afternoon yesterday. On arrival to the emergency room she was found to be in atrial fibrillation with rapid ventricular rate. She was admitted to the ICU on a Cardizem drip. This morning she states she feels much better and she has no pain. She has recently established with Dr. Lozada and was planning to have a cardiac cath on July 12. she remains on a Cardizem drip with rates in the 90s. Date Seen 07/02/19 Time Seen by a Provider: 08:15 Attending Physician Remy Turpin MD PCP John Forte MD Referring Physician Date of Admission Jul 01, 2019 at 20:42 Home Medications & Allergies Home Medications Reviewed patient Home Medication Reconciliation performed by pharmacy medication reconciliations biomedical repair technician and/or nursing. Patients Allergies have been reviewed. Allergies Allergies Coded Allergies Sulfa (Sulfonamide Antibiotics) (Verified Allergy, Unknown, 06/01/06) Past Ymdtfqd-Gpybrx-Azmxno Hx Past Med/Social Hx: Reviewed Nursing Past Med/Soc Hx Patient Social History Marrital Status: Employed/Student: employed Alcohol Use: Denies Use Recreational Drug Use: No Smoking Status: Never a Smoker Recent Foreign Travel: No Contact w/other who traveled: No Recent Hopitalizations: No (\\) Recent Infectious Disease Expo: No Immunizations Up To Date Date of Pneumonia Vaccine: Apr 13, 2013 Date of Influenza Vaccine: Apr 25, 2012 Past Medical History Surgeries: Hysterectomy, Orthopedic, Thyroidectomy Cardiac: High Cholesterol, Hypertension : No Reproductive: Yes (OVARIAN CYST/FIBROID TUMOR/ENDOMETRIOSIS/COMPLETE HYSTERECTOMY) Sexually Transmitted Disease: No Hysterectomy Gastrointestinal: Hemorrhoids Endocrine: Hypothyroidsim HEENT: Cataract Cancer: Thyroid Did You Recieve Any Treatments: Yes What Type of Treatment Did You: Surgical Intervention History of Blood Disorders: No Family History Reviewed Nursing Family Hx FH: Raynaud's phenomenon G8 SISTER, Onset:Unknown FH: hypothyroidism G8 SISTER, Onset:Unknown FH: lung cancer 19 FATHER, , Onset:50's - 60 FH: macular degeneration 19 MOTHER, Onset:Unknown FH: multiple sclerosis G8 BROTHER, Onset:50's - 60 FH: stroke 19 FATHER, , Onset:50's - 60 Hypertension 19 FATHER, , Onset:40's - 50 19 MOTHER, Onset:Unknown TIAs G8 SISTER, Onset:20's - 25 No Pertinent Family Hx Review of Systems Constitutional: No chills, No fever EENTM: no symptoms reported Respiratory: No cough; short of breath Cardiovascular: chest pain; No Hx of Intervention; palpitations Gastrointestinal: No abdominal pain, No constipation, No diarrhea; nausea; No vomiting Genitourinary: no symptoms reported Musculoskeletal: no symptoms reported Skin: no symptoms reported Psychiatric/Neurological: No Symptoms Reported Physical Exam Physical Exam Vital Signs Vital Signs - First Documented 07/01/19 23:16 Pulse Ox 98 Capillary Refill : Less Than 3 Seconds Height, Weight, BMI Height: 6'1.00" Weight: 240lbs. oz. 108.317415sb; 36.49 BMI Method: General Appearance: No Apparent Distress, WD/WN HEENT: PERRL/EOMI, Moist Mucous Membranes; No Scleral Icterus (L), No Scleral Icterus (R) Neck: Normal Inspection, Supple Respiratory: Lungs Clear, No Respiratory Distress Cardiovascular: No JVD, No Murmur, Irregularly Irregular Gastrointestinal: Normal Bowel Sounds, Non Tender, Soft Neurologic/Psychiatric: Alert, Oriented x3, Normal Mood/Affect Skin: Normal Color, Warm/Dry Results Results/Procedures Labs Laboratory Tests 07/01/19 20:56 07/02/19 03:32 Patient resulted labs reviewed. Imaging: Reviewed Imaging Report Assessment/Plan Admission Diagnosis Atrial Fibrillation with RVR Admission Status: Inpatient Order (span 2 midnights) Reason for Inpatient Admission: on cardizem gtt, need cardiac evaluation, will take more than two midnights to stabilize for DC Assessment and Plan Atrial Fibrillation with RVR Chest pain Continue on cardizem Cardiology consulted Troponin negative Plan for cath later today Eliquis for anticoagulation HTN BP well controlled, trend Chronic back pain Resume gabapentin when able to PO Hypothyroidism Resume when able to PO DVT ppx: On eliquis for stroke ppx Diagnosis/Problems Diagnosis/Problems (1) Atrial fibrillation with rapid ventricular response Status: Acute (2) Chest pain Status: Acute Qualifiers: Chest pain type: other chest pain Qualified Codes: R07.89 - Other chest pain (3) Essential (primary) hypertension Status: Chronic (4) Hypothyroidism Status: Chronic Qualifiers: Hypothyroidism type: postoperative Qualified Codes: E89.0 - Postprocedural hypothyroidism (5) Lymphedema Status: Chronic (6) Chronic back pain greater than 3 months duration Status: Chronic (7) BMI 36.0-36.9,adult Status: Chronic Clinical Quality Measures AMI/AHF: ASA po Prior to arrival: No DVT/VTE Risk/Contraindication: Risk Factor Score Per Nursin RFS Level Per Nursing on Admit: 4+=Very High REMY TURPIN MD Jul 02, 2019 14:16
[2019-07-02] MEDS ORDERED: METO50TA7 PO (14:18)
[2019-07-02] MEDS: GABAPENTIN 300 MG (NEURONTIN) CAP PO SCH (20:46)
--- NOTE | 2019-07-02 23:49 | NUR ---
interactive video technician reported that patient converted to SB at this time.
[2019-07-03] VITALS (10 sets, daily range): BP systolic 103–121; BP diastolic 60–78
[2019-07-03] MEDS: dilTIAZem DRIP 125 MG/125 ML DRIP IV SCH (00:24)
[2019-07-03 04:18] LABS: BASOPHILS % (AUTO) 0 % (0-10); EOSINOPHILS # (AUTO) 0.2 10^3/uL (0.0-0.3); EOSINOPHILS % (AUTO) 2 % (0-10); HEMATOCRIT 34 % (35-52); HEMOGLOBIN 10.8 G/DL (11.5-16.0); LYMPHOCYTES # (AUTO) 3.6 X 10^3 (1.0-4.0); LYMPHOCYTES % (AUTO) 39 % (12-44); MEAN CORPUSCULAR HGB CONC 32 G/DL (32-36); MEAN CORPUSCULAR VOLUME 84 FL (80-99); MONOCYTES # (AUTO) 0.8 X 10^3 (0.0-1.0); MONOCYTES % (AUTO) 8 % (0-12); NEUTROPHILS # (AUTO) 4.6 X 10^3 (1.8-7.8); NEUTROPHILS % (AUTO) 50 % (42-75); PLATELET COUNT 220 10^3/uL (130-400); RED CELL DISTRIBUTION WIDTH 15.9 % (10.0-14.5); WHITE BLOOD COUNT 9.2 10^3/uL (4.3-11.0)
[2019-07-03 04:49] LABS: BUN/CREATININE RATIO 24; CALCIUM 8.4 MG/DL (8.5-10.1); CARBON DIOXIDE 20 MMOL/L (21-32); CHLORIDE 109 MMOL/L (98-107); CREATININE SERUM 0.66 MG/DL (0.60-1.30); GFR ESTIMATED > 60; GLUCOSE 95 MG/DL (70-105); MAGNESIUM 1.7 MG/DL (1.6-2.4); PHOSPHORUS 2.8 MG/DL (2.3-4.7); POTASSIUM 3.6 MMOL/L (3.6-5.0); SODIUM 139 MMOL/L (135-145)
[2019-07-03] MEDS: POTASSIUM CL 10MEQ/50ML IVPB 50 ML IV SCH ×3 (05:09→06:10)
[2019-07-03] MEDS: KCL 20 MEQ TAB (K-DUR) PO SCH (05:09)
[2019-07-03] MEDS: NS IV 1000 ML 1,000 ML IV SCH ×2 (05:09→05:10)
[2019-07-03] MEDS: MAGNESIUM 1 GM/100 ML IVPB 100 ML IV SCH ×3 (05:09→06:10)
[2019-07-03 05:37] LABS: MEAN CORPUSCULAR HEMOGLOBIN 26 PG (25-34)
--- NOTE | 2019-07-03 07:13 | Diagnostic Imaging Report ---
INDICATION: A. fib. COMPARISON: 07/02/2019 FINDINGS: There is cardiomegaly. There is some venous congestion. There is no pleural effusion or pneumothorax. The mediastinum is unremarkable. IMPRESSION: Cardiomegaly and mild central pulmonary venous congestion. Dictated by: Dictated on workstation # [id number]
[2019-07-03] MEDS ORDERED: APIX5TAB PO (08:51)
[2019-07-03] MEDS ORDERED: FLEC100T PO (08:51)
--- NOTE | 2019-07-03 08:51 | Discharge Inst-Post CATH ---
Discharge Inst-CATH/EP Problems Reviewed?: Yes Post Cardiac Cath/EP D/C Inst Follow Up/Plan Appointment with Dr. Lozada's office in 2-4 weeks <b>CARDIAC CATH/EP PROCEDURE DISCHARGE INSTRUCTIONS</b> ACTIVITY * Go Home directly and rest. * Limit activity of the leg (or wrist if it was used) for 7 days including aerobics, swimming, jogging, bicycling, etc. * Restrict stair-climbing for 7 days if possible, if not, climb up with your non-cath leg, then bring together on the same step. * Avoid lifting, pushing, pulling or excessive movement of the affected extremity for 7 days. * Customary sexual activity may be resumed after 2 days-use caution not to use a position that strains or causes pain to the affected extremity. * No driving for 24 hours. * NO SMOKING. * Avoid straining for bowel movements for 7 days. * Gentle walking on level ground is allowed. * Returning to work will depend on the type of procedure and the results. Your doctor will discuss this with you. CALL YOUR DOCTOR FOR ANY OF THE FOLLOWING: *If bleeding from the puncture site occurs- Apply gentle pressure to site with clean cloth and call your doctor or EMS. * If a knot or lump forms under the skin, increases in size, or causes pain. * If bruising appears to be worsening or moving further down your leg instead of disappearing. * Temperature above 101 F. CARE OF YOUR GROIN INCISION; * Bruising or purple discoloration of the skin near the puncture site is common. * You may shower only, no bathtub bathing for 5 days. Be careful to avoid slipping as your leg may feel stiff. * If a closure device was used on your femoral artery, please see the attached guide regarding care of the device and your leg. * Leave dressing on FOR 24 hours. CARE OF YOUR WRIST INCISION; * Bruising or purple discoloration of the skin near the puncture site is common. * You may shower. * DO NOT submerge wrist. * Leave dressing on FOR 24 hours. LARRY LOZADA MD Jul 03, 2019 08:51
--- NOTE | 2019-07-03 08:53 | Cardiology Progress Note ---
Subjective Date Seen by Provider: Jul 03, 2019 Time Seen by Provider: 08:52 Subjective/Events-last exam Patient is laying down in bed, feeling well. No new complaint Review of Systems General: No Chills, No Night Sweats, No Fatigue, No Malaise, No Appetite, No Other HEENT: No Head Aches, No Visual Changes, No Eye Pain, No Ear Pain, No Dysphasia, No Sinus Congestion, No Post Nasal Drip, No Sore Throat, No Other Pulmonary: No Dyspnea, No Cough, No Pleuritic Chest Pain, No Other Cardiovascular: No: Chest Pain, Palpitations, Orthopnea, Paroxysmal Noc. Dyspnea, Edema, Lt Headedness, Other Objective-Cardiology Exam Last Set of Vital Signs Vital Signs 07/03/19 07/03/19 06:00 07:00 Pulse 63 Resp 23 B/P (MAP) 112/75 (87) Pulse Ox 93 O2 Delivery NIV CPAP Capillary Refill : Less Than 3 Seconds I&O Intake and Output 07/03/19 00:00 Intake Total 1680 ml Output Total 1200 ml Balance 480 ml Intake Oral 1530 ml IV Total 150 ml Output Urine Total 1200 ml # Voids 3 General: Alert, Oriented X3, Cooperative HEENT: Atraumatic, PERRLA Neck: Supple, No JVD, No Thyromegaly Lungs: Clear to Auscultation, Normal Air Movement Heart: Regular Rate, Normal S1, Normal S2, No Murmurs Abdomen: Normal Bowel Sounds, Soft, No Tenderness, No Hepatosplenomegaly, No Masses Extremities: No Clubbing, No Cyanosis, No Edema, Normal Pulses, No Tenderness/Swelling Skin: No Rashes, No Breakdown, No Significant Lesion Neuro: Normal Gait, Normal Speech, Strength at 5/5 X4 Ext, Normal Tone, Sensation Intact Psych/Mental Status: Mental Status NL, Mood NL Results Lab Laboratory Tests 07/03/19 03:28 A/P-Cardiology Admission Diagnosis Chest pain Atrial fibrillation Tachycardia Hypertension Assessment/Plan Chest pain nonspecific etiology, cardiac catheterization done on July 02, 2019 showing mild artery artery disease, nonobstructive disease. Medical therapy is recommended Paroxysmal atrial fibrillation, continue on flecainide and Eliquis, follow-up as an outpatient Hypertension, continue on Toprol and monitor blood pressure Hyperlipidemia maintained on Lipitor 20 mg daily, monitor lipids Gastroesophageal reflux disease maintained on Protonix Anxiety maintained on citalopram Mild bilateral carotid stenosis, continue to monitor Hypothyroidism maintained on thyroid replacement managed by Dr. Hubbard Peripheral neuropathy, followed by primary care physician Clinical Quality Measures AMI/AHF: ASA po Prior to arrival: No DVT/VTE Risk/Contraindication: Risk Factor Score Per Nursin RFS Level Per Nursing on Admit: 4+=Very High LARRY HILLS MD Jul 03, 2019 08:53
[2019-07-03] MEDS ORDERED: PANTOPRAZOLE 40 MG (PROTONIX) TAB PO SCH (09:00)
[2019-07-03] MEDS ORDERED: HYDROCHLOROTHIAZIDE 25 MG (HCTZ) TAB PO SCH (09:00)
[2019-07-03] MEDS ORDERED: meTOproloL SUCCINATE 50 MG (TOPROL XL) TAB PO SCH ×2 (09:00)
[2019-07-03] MEDS ORDERED: LEVOTHYROXINE 125 MCG (LEVOTHROID) TABLET PO SCH (09:00)
[2019-07-03] MEDS ORDERED: NON-FORMULARY MEDICATION 1 EA EA (Meloxicam 15 MG) PO SCH (09:00)
[2019-07-03] MEDS: APIXABAN 5 MG (ELIQUIS) TABLET PO SCH (09:22)
[2019-07-03] MEDS: GABAPENTIN 300 MG (NEURONTIN) CAP PO SCH (09:23)
[2019-07-03] MEDS: FLECAINIDE 100 MG (TAMBOCOR) TAB PO SCH (09:23)
--- NOTE | 2019-07-03 09:27 | Discharge Summary ---
Diagnosis/Chief Complaint Date of Admission Jul 01, 2019 at 20:42 Date of Discharge Discharge Date: Jul 03, 2019 Admission Diagnosis Atrial Fibrillation with RVR Primary Care John Oneil MD Discharge Diagnosis (1) Atrial fibrillation with rapid ventricular response Status: Acute (2) Chest pain Status: Acute (3) Essential (primary) hypertension Status: Chronic (4) Hypothyroidism Status: Chronic (5) Lymphedema Status: Chronic (6) Chronic back pain greater than 3 months duration Status: Chronic (7) BMI 36.0-36.9,adult Status: Chronic Discharge Summary Discharge Physical Exam Allergies: Coded Allergies: Sulfa (Sulfonamide Antibiotics) (Verified Allergy, Unknown, 06/01/06) Vitals & I&Os Vital Signs Date Time Temp Pulse Resp B/P (MAP) Pulse Ox O2 Delivery O2 Flow Rate FiO2 07/03/19 08:00 61 26 113/67 (82) 93 NIV CPAP 07/03/19 04:00 36.4 General Appearance: No Apparent Distress, WD/WN Respiratory: Lungs Clear, No Respiratory Distress Cardiovascular: Regular Rate, Rhythm, No Murmur Hospital Course Pt was admitted due to atrial fibrillation with rapid ventricular rate. She was admitted to the ICU on a cardizem gtt. She went ot cardiac cath which was clean. She was then started on flecainide and converted to sinus rhythm overnight. She remained in sinus rhythm and was discharged home in stable condition to follow up with her PCP Dr Oneil. Of note here TSH was 0.27. I discussed this with her and she states that Dr Watts manages her Synthroid and her levels are hard to get in the normal range. I advised her to follow up with Dr Watts regarding this. Labs (last 24 hrs) Laboratory Tests 07/03/19 03:28: White Blood Count 9.2, Red Blood Count 4.08L, Hemoglobin 10.8L, Hematocrit 34L, Mean Corpuscular Volume 84, Mean Corpuscular Hemoglobin 26, Mean Corpuscular Hemoglobin Concent 32, Red Cell Distribution Width 15.9H, Platelet Count 220, Mean Platelet Volume 12.0H, Neutrophils (%) (Auto) 50, Lymphocytes (%) (Auto) 39, Monocytes (%) (Auto) 8, Eosinophils (%) (Auto) 2, Basophils (%) (Auto) 0, Neutrophils # (Auto) 4.6, Lymphocytes # (Auto) 3.6, Monocytes # (Auto) 0.8, Eosinophils # (Auto) 0.2, Basophils # (Auto) 0.0, Sodium Level 139, Potassium Level 3.6, Chloride Level 109H, Carbon Dioxide Level 20L, Anion Gap 10, Blood Urea Nitrogen 16, Creatinine 0.66, Estimat Glomerular Filtration Rate > 60, BUN/Creatinine Ratio 24, Glucose Level 95, Calcium Level 8.4L, Phosphorus Level 2.8, Magnesium Level 1.7 Patient resulted labs reviewed. Pending Labs Laboratory Tests 07/03/19 03:28: White Blood Count 9.2, Red Blood Count 4.08, Hemoglobin 10.8, Hematocrit 34, Mean Corpuscular Volume 84, Mean Corpuscular Hemoglobin 26, Mean Corpuscular Hemoglobin Concent 32, Red Cell Distribution Width 15.9, Platelet Count 220, Mean Platelet Volume 12.0, Neutrophils (%) (Auto) 50, Lymphocytes (%) (Auto) 39, Monocytes (%) (Auto) 8, Eosinophils (%) (Auto) 2, Basophils (%) (Auto) 0, Neutrophils # (Auto) 4.6, Lymphocytes # (Auto) 3.6, Monocytes # (Auto) 0.8, Eosinophils # (Auto) 0.2, Basophils # (Auto) 0.0, Sodium Level 139, Potassium Level 3.6, Chloride Level 109, Carbon Dioxide Level 20, Anion Gap 10, Blood Urea Nitrogen 16, Creatinine 0.66, Estimat Glomerular Filtration Rate > 60, BUN/Creatinine Ratio 24, Glucose Level 95, Calcium Level 8.4, Phosphorus Level 2.8, Magnesium Level 1.7 Imaging: Reviewed Imaging Report Discussion & Recommendations Discharge Planning: >30 minutes discharge planning Discharge Home Medications: Active Scripts Active Flecainide Acetate 100 Mg Tablet 50 Mg PO BID Eliquis (Apixaban) 5 Mg Tablet 5 Mg PO BID Reported Metoprolol Succinate 50 Mg Tab.er.24h 50 Mg PO DAILY Vitamin D3 (Cholecalciferol (Vitamin D3)) 50,000 Unit Capsule 50,000 Unit PO TWICE MONTHLY Gabapentin 300 Mg Capsule 300 Mg PO TID Vitamin B-12 (Cyanocobalamin (Vitamin B-12)) 500 Mcg Tablet 500 Mcg PO DAILY Vitamin D3 (Cholecalciferol (Vitamin D3)) 2,000 Unit Tablet 2,000 Unit PO DAILY Levothyroxine Sodium 125 Mcg Tablet 250 Mcg PO DAILY Premarin (Estrogens, Conjugated) 0.9 Mg Tablet 0.9 Mg PO DAILY Meloxicam 15 Mg Tablet 15 Mg PO DAILY Hydrochlorothiazide 25 Mg Tablet 25 Mg PO DAILY Citalopram HBr (Citalopram Hydrobromide) 20 Mg Tablet 20 Mg PO DAILY Pantoprazole Sodium 40 Mg Tablet.dr 40 Mg PO DAILY Instructions to patient/family Please see electronic discharge instructions given to patient. Clinical Quality Measures AMI/AHF: ASA po Prior to arrival: No DVT/VTE Risk/Contraindication: Risk Factor Score Per Nursin RFS Level Per Nursing on Admit: 4+=Very High Copy Copies To 1: LONNY WATTS DO; JOHN ONEIL MD Problem Qualifiers (1) Chest pain: Chest pain type: other chest pain Qualified Codes: R07.89 - Other chest pain (2) Hypothyroidism: Hypothyroidism type: postoperative Qualified Codes: E89.0 - Postprocedural hypothyroidism REMY NIXON MD Jul 03, 2019 09:27
== END 2019-07-03 09:45 | disposition home or self-care (01) | DRG 287 ==
LOC: EDUNIT# 20:30 → ER 20:31 → ICU 20:42
PROVIDERS: ADMIT Family Medicine; ATTEND Family Medicine
PROC: 4A023N7 Measurement of Cardiac Sampling and Pressure, Left Heart, Percutaneous Approach (ICD-10-PCS; principal; 2019-07-02)
PROC: B2151ZZ Fluoroscopy of Left Heart using Low Osmolar Contrast (ICD-10-PCS; 2019-07-02)
PROC: B3101ZZ Fluoroscopy of Thoracic Aorta using Low Osmolar Contrast (ICD-10-PCS; 2019-07-02)
PROC: B2111ZZ Fluoroscopy of Multiple Coronary Arteries using Low Osmolar Contrast (ICD-10-PCS; 2019-07-02)
DX: I48.0 Paroxysmal atrial fibrillation (principal); I25.10 Atherosclerotic heart disease of native coronary artery without angina pectoris; I10 Essential (primary) hypertension; E89.0 Postprocedural hypothyroidism; I89.0 Lymphedema, not elsewhere classified; M54.9 Dorsalgia, unspecified; E78.5 Hyperlipidemia, unspecified; K21.9 Gastro-esophageal reflux disease without esophagitis; F41.9 Anxiety disorder, unspecified; I65.23 Occlusion and stenosis of bilateral carotid arteries; G62.9 Polyneuropathy, unspecified; E78.00 Pure hypercholesterolemia, unspecified; Z85.850 Personal history of malignant neoplasm of thyroid; Z23 Encounter for immunization
CPT/HCPCS: 36221; 36415; 71045; 80048; 80053; 80061; 83735; 83874; 84100; 84443; 84484; 85025; 85610; 85730; 87081; 93005; 93041; 93458

== ENCOUNTER → 2019-07-21 | Day surgery (SDC) | payer MEDICARE ==
[~2019-07-21] VITALS: Ht 185.5 cm; Wt 113.6 kg
[~2019-07-21] MED LIST changes: +APIX5TAB PO; +FLEC100T PO; +LIDOCAINE 1% INJ 20 ML 20 ML VIAL INJ ONE; +METO50TA7 PO
--- NOTE | 2019-07-21 10:02 | Diagnostic Imaging Report ---
INDICATION: Right neck mass. Patient presents for ultrasound-guided fine-needle aspiration. FINDINGS: Patient was brought to the procedure room, placed on the table in the supine position. Ultrasound imaging of the right neck was performed to evaluate appropriate entry site. The right neck was then prepped and draped in the usual sterile fashion. Small amount of 1% lidocaine was utilized for local anesthesia. Total of four passes were made into the slightly hyperechoic ovoid mass in the lower right neck just lateral to the right jugular vein. Passes were made with 25-gauge needles. Fine-needle aspiration technique was utilized. Patient tolerated the procedure well and left the department in stable condition. IMPRESSION: Ultrasound-guided fine-needle aspiration of the soft tissue mass in the lower right neck just lateral to the right internal jugular vein. Pathology results are currently pending. Dictated by: Dictated on workstation # [id number]
== END | disposition home or self-care (01) ==
LOC: RAD 08:02
PROVIDERS: ATTEND Internal Medicine Endocrinology, Diabetes & Metabolism
DX: R22.2 Localized swelling, mass and lump, trunk (principal); Z88.2 Allergy status to sulfonamides
CPT/HCPCS: 88173; 88305

== ENCOUNTER → 2019-09-09 | Outpatient (CLI) | payer MEDICARE ==
[~2019-09-09] MED LIST changes: +ATOR20TA66 PO; -LIDOCAINE 1% INJ 20 ML 20 ML VIAL INJ ONE
== END ==
LOC: LABNPT 09:27
PROVIDERS: ATTEND Internal Medicine Cardiovascular Disease
DX: Z01.812 Encounter for preprocedural laboratory examination (principal); I48.91 Unspecified atrial fibrillation
CPT/HCPCS: 87635

== ENCOUNTER 2019-09-15 09:39 | Outpatient (RCR) | payer MEDICARE | END 2019-12-14 | disposition home or self-care (01) | LOC: CARD 09:39 | PROVIDERS: ATTEND Internal Medicine Interventional Cardiology | DX: I48.0 Paroxysmal atrial fibrillation (principal) ==

== ENCOUNTER → 2019-11-07 | Outpatient (CLI) | payer MEDICARE | LOC: LABNPT 06:51 | PROVIDERS: ATTEND Internal Medicine Interventional Cardiology | DX: Z01.818 Encounter for other preprocedural examination (principal) ==

== ENCOUNTER → 2020-04-17 | Outpatient (CLI) | payer MEDICARE ==
[~2020-04-17] MED LIST changes: -CYAN500T62 PO; +CYAN500T64 PO; -PANT40TA3 PO; +PANT40TA52 PO
--- NOTE | 2020-04-17 11:01 | Diagnostic Imaging Report ---
Digital mammogram INDICATION: Bilateral screening This study was compared to the prior exams of 03/29/2019, 02/16/2018 and 12/04/2016. At this time there are no current complaints. The current study was also evaluated with a Computer Aided Detection (CAD) system. FINDINGS: The fibroglandular tissue in both breasts is heterogeneously dense. This does limit the sensitivity of this exam. Overall, there does not appear to have been any significant change when compared to the prior study. No primary or secondary sign of malignancy is noted. IMPRESSION: There is no radiographic evidence for malignancy. ACR category 1 ACR BI-RADS Category 1: Negative. Result letter will be mailed to the patient. Note: At least 10% of breast cancer is not imaged by mammography. Dictated by: Dictated on workstation # [id number]
== END ==
LOC: RAD 10:15
PROVIDERS: ATTEND Obstetrics & Gynecology
DX: Z12.31 Encounter for screening mammogram for malignant neoplasm of breast (principal)
CPT/HCPCS: 77063; 77067

== ENCOUNTER → 2020-08-30 | Outpatient (CLI) | payer MEDICARE ==
[~2020-08-30] MED LIST changes: -CYAN500T64 PO; +CYAN500T8 PO
--- NOTE | 2020-08-30 17:05 | Diagnostic Imaging Report ---
PROCEDURE: US left lower extremity venous. TECHNIQUE: Multiple real-time grayscale images were obtained over the left lower extremity in various projections. Additional duplex Doppler and color Doppler images were also obtained. INDICATION: Left leg pain. There is no evidence of left lower extremity DVT. Left lower extremity deep venous system shows normal compressibility with normal response to augmentation and Valsalva. No fluid collection or mass is detected. IMPRESSION: No evidence of left lower extremity DVT. Dictated by: Dictated on workstation # [id number]
== END ==
LOC: RAD 14:59
PROVIDERS: ATTEND Nurse Practitioner Family
DX: M79.605 Pain in left leg (principal); M17.12 Unilateral primary osteoarthritis, left knee; M79.89 Other specified soft tissue disorders

== ENCOUNTER 2021-03-29 18:37 | Emergency (ER) | payer MEDICARE ==
[~2021-03-29] VITALS: Ht 180.3 cm; Wt 123.8 kg
[2021-03-29 19:57] LABS: BILIRUBIN,URINE NEGATIVE (NEGATIVE); CLARITY,URINE CLEAR; COLOR,URINE YELLOW; GLUCOSE, URINE (UA) NEGATIVE (NEGATIVE); KETONES,URINE NEGATIVE (NEGATIVE); LEUKOCYTE ESTERASE ,URINE NEGATIVE (NEGATIVE); NITRITE,URINE NEGATIVE (NEGATIVE); PROTEIN,URINE NEGATIVE (NEGATIVE)
[2021-03-29 20:06] LABS: BACTERIA,URINE TRACE /HPF; YEAST,URINE FEW /HPF
--- NOTE | 2021-03-29 20:35 | ED General ---
General Chief Complaint: Neuro-Stroke Like Symptoms Stated Complaint: VISION PROBLEMS Nursing Triage Note: PATIENT STATES THAT OVER THE PAST WEEK STARTING LAST THURSDAY SHE HAS EXPERIENCED FOUR EPISODES OF A DARK SPOT IN HER RIGHT EYE FIELD OF VISION. TODAY IT HAPPENED TWICE. THE FIRST ONE LASTED 15-30 SECONDS, AND THE SECOND ONE THIS EVENING WAS 30SEC-1 MIN. Source of Information: Patient Exam Limitations: No Limitations History of Present Illness Date Seen by Provider: Mar 29, 2021 Time Seen by Provider: 19:30 Initial Comments To ER with vision abnormalities that began earlier this week. She had 2 episodes over the course of the week and 2 more episodes today. These lasted 15 to 30 seconds and are described as her vision in her right eye going dark. This affected the entire field of vision in the right eye. She denies any eye pain but she did have a headache when this started. She denies fevers or chills no history of this prior to this week. She called her morale officer Dr. Navas and was referred here to the emergency room to evaluate for stroke. She has a history of atrial fibrillation. She has had the watchman procedure so she is not on anticoagulation other than baby aspirin. During these episodes or visual loss she had NO speech abnormalities, NO weakness or paresthesias or sensory changes, NO dizziness. Timing/Duration: 1-2 Days Severity: Moderate Associated Systoms: Denies Symptoms Allergies and Home Medications Allergies Coded Allergies: Sulfa (Sulfonamide Antibiotics) (Verified Allergy, Unknown, 06/01/06) Patient Home Medication List Home Medication List Reviewed: Yes Apixaban (Eliquis) 5 Mg Tablet, 5 MG PO BID Prescribed by: LARRY HILLS on 07/03/19 0851 Atorvastatin Calcium (Atorvastatin Calcium) 20 Mg Tablet, 20 MG PO DAILY, (Reported) Entered as Reported by: PACO EATON on 09/14/19 0956 Cholecalciferol (Vitamin D3) (Vitamin D3) 2,000 Unit Tablet, 2,000 UNIT PO DAILY, (Reported) Entered as Reported by: DARSHAN ERICKSON on 06/07/19 1506 Cholecalciferol (Vitamin D3) (Vitamin D3) 50,000 Unit Capsule, 50,000 UNIT PO TW ICE MONTHLY, (Reported) Entered as Reported by: DARSHAN ERICKSON on 06/07/19 1506 Citalopram Hydrobromide (Citalopram HBr) 20 Mg Tablet, 20 MG PO DAILY, (Reported) Entered as Reported by: DARSHAN ERICKSON on 06/07/19 150 Cyanocobalamin (Vitamin B-12) (Vitamin B-12) 500 Mcg Tablet, 500 MCG PO DAILY, (Reported) Entered as Reported by: DARSHAN ERICKSON on 06/07/19 150 Estrogens, Conjugated (Premarin) 0.9 Mg Tablet, 0.9 MG PO DAILY, (Reported) Entered as Reported by: DARSHAN ERICKSON on 06/07/19 150 Flecainide Acetate (Flecainide Acetate) 100 Mg Tablet, 50 MG PO BID Prescribed by: LARRY HILLS on 07/03/19 0851 Gabapentin (Gabapentin) 300 Mg Capsule, 300 MG PO TID, (Reported) Entered as Reported by: DARSHAN ERICKSON on 06/07/19 150 Hydrochlorothiazide (Hydrochlorothiazide) 25 Mg Tablet, 25 MG PO DAILY, (Reported) Entered as Reported by: DARSHAN ERICKSON on 06/07/19 150 Levothyroxine Sodium (Levothyroxine Sodium) 125 Mcg Tablet, 250 MCG PO DAILY, (Reported) Entered as Reported by: DARSHAN ERICKSON on 06/07/19 150 Meloxicam (Meloxicam) 15 Mg Tablet, 15 MG PO DAILY, (Reported) Entered as Reported by: DARSHAN ERICKSON on 06/07/19 150 Metoprolol Succinate (Metoprolol Succinate) 50 Mg Tab.er.24h, 75 MG PO DAILY, (Reported) Entered as Reported by: DOC ZENG on 07/02/19 1418 Pantoprazole Sodium (Pantoprazole Sodium) 40 Mg Tablet.dr, 40 MG PO DAILY, (Reported) Entered as Reported by: DARSHAN ERICKSON on 06/07/19 150 Review of Systems Review of Systems Constitutional: see HPI EENTM: see HPI Respiratory: no symptoms reported Cardiovascular: no symptoms reported Genitourinary: no symptoms reported Musculoskeletal: no symptoms reported Skin: no symptoms reported Psychiatric/Neurological: No Symptoms Reported Hematologic/Lymphatic: No Symptoms Reported Past Susjsnd-Jwbifw-Gbvrby Hx Past Medical History Surgeries: Yes Hysterectomy, Joint Replacement, Orthopedic, Thyroidectomy Respiratory: Yes Sleep Apnea Currently Using CPAP: Yes Cardiac: Yes (mitral valve leaky) Atrial Fibrillation, High Cholesterol, Hypertension, Valvular Heart Disease Neurological: No Reproductive Disorders: Yes (OVARIAN CYST/FIBROID TUMOR/ENDOMETRIOSIS/COMPLETE HYSTERECTOMY) 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 Sexually Transmitted Disease: No Genitourinary: No Gastrointestinal: Yes Gastroesophageal Reflux, Hemorrhoids Musculoskeletal: Yes Endocrine: Yes Hypothyroidsim HEENT: Yes Cataract Cancer: Yes Thyroid Did You Recieve Any Treatments: Yes What Type of Treatment Did You: Radiation, Surgical Intervention Psychosocial: No Integumentary: No Blood Disorders: No Family Medical History FH: Raynaud's phenomenon G8 SISTER, Onset:Unknown FH: hypothyroidism G8 SISTER, Onset:Unknown FH: lung cancer 19 FATHER, , Onset:50's - 60 FH: macular degeneration 19 MOTHER, Onset:Unknown FH: multiple sclerosis G8 BROTHER, Onset:50s - FH: stroke 19 FATHER, , Onset:50's - Hypertension 19 FATHER, , Onset:40's - 50 19 MOTHER, Onset:Unknown TIAs G8 SISTER, Onset: - No Pertinent Family Hx Physical Exam Vital Signs Vital Signs - First Documented 03/29/21 19:22 Temp 36.5 Pulse 74 Resp 20 B/P (MAP) 149/113 (125) Pulse Ox 96 O2 Delivery Room Air Capillary Refill : Less Than 3 Seconds Height, Weight, BMI Height: 6'1.00" Weight: 240lbs. oz. 108.565199xj; 38.00 BMI Method: General Appearance: No Apparent Distress, WD/WN, Other (She states her vision seems normal at this time.) Eyes: Bilateral Eye Normal Inspection, Bilateral Eye PERRL, Bilateral Eye EOMI Neck: Full Range of Motion, Normal Inspection Respiratory: No Accessory Muscle Use, No Respiratory Distress Cardiovascular: Regular Rate, Rhythm, Normal Peripheral Pulses (EKG here shows sinus rhythm at 58 no ectopy normal intervals) Gastrointestinal: Normal Bowel Sounds, Non Tender, Soft Extremity: Normal Capillary Refill, Normal Inspection Neurologic/Psychiatric: Alert, Oriented x3, No Motor/Sensory Deficits Skin: Normal Color, Warm/Dry Progress/Results/Core Measures Suspected Sepsis SIRS Temperature: Pulse: 74 Respiratory Rate: 20 Laboratory Tests 03/29/21 20:31: White Blood Count 10.6 Blood Pressure 149 /113 Mean: 125 Laboratory Tests 03/29/21 20:31: Creatinine 1.08, INR Comment 0.9, Platelet Count 221, Total Bilirubin 0.3 Results/Orders Lab Results Laboratory Tests Test 03/29/21 19:43 03/29/21 19:50 03/29/21 20:31 Range/Units Glucometer 100 70-110 MG/DL Urine Color YELLOW Urine Clarity CLEAR Urine pH 6.0 5-9 Urine Specific Alva >=1.030 1.016-1.022 Urine Protein NEGATIVE NEGATIVE Urine Glucose (UA) NEGATIVE NEGATIVE Urine Ketones NEGATIVE NEGATIVE Urine Nitrite NEGATIVE NEGATIVE Urine Bilirubin NEGATIVE NEGATIVE Urine Urobilinogen 0.2 < = 1.0 MG/DL Urine Leukocyte Esterase NEGATIVE NEGATIVE Urine RBC (Auto) NEGATIVE NEGATIVE Urine RBC NONE /HPF Urine WBC 5-10 H /HPF Urine Squamous Epithelial Cells 2-5 /HPF Urine Crystals NONE /LPF Urine Bacteria TRACE /HPF Urine Casts NONE /LPF Urine Mucus NEGATIVE /LPF Urine Yeast FEW H /HPF Urine Culture Indicated NO White Blood Count 10.6 4.3-11.0 10^3/uL Red Blood Count 4.16 3.80-5.11 10^6/uL Hemoglobin 11.6 11.5-16.0 g/dL Hematocrit 38 35-52 % Mean Corpuscular Volume 92 80-99 fL Mean Corpuscular Hemoglobin 28 25-34 pg Mean Corpuscular Hemoglobin Concent 30 L 32-36 g/dL Red Cell Distribution Width 14.1 10.0-14.5 % Platelet Count 221 130-400 10^3/uL Mean Platelet Volume 11.2 9.0-12.2 fL Immature Granulocyte % (Auto) 0 % Neutrophils (%) (Auto) 49 42-75 % Lymphocytes (%) (Auto) 40 12-44 % Monocytes (%) (Auto) 8 0-12 % Eosinophils (%) (Auto) 2 0-10 % Basophils (%) (Auto) 1 0-10 % Neutrophils # (Auto) 5.2 1.8-7.8 10^3/uL Lymphocytes # (Auto) 4.2 H 1.0-4.0 10^3/uL Monocytes # (Auto) 0.9 0.0-1.0 10^3/uL Eosinophils # (Auto) 0.2 0.0-0.3 10^3/uL Basophils # (Auto) 0.1 0.0-0.1 10^3/uL Immature Granulocyte # (Auto) 0.0 0.0-0.1 10^3/uL Prothrombin Time 12.1 L 12.2-14.7 SEC INR Comment 0.9 0.8-1.4 Activated Partial Thromboplast Time 32 24-35 SEC D-Dimer 0.64 H 0.00-0.49 UG/ML Sodium Level 139 135-145 MMOL/L Potassium Level 3.9 3.6-5.0 MMOL/L Chloride Level 105 98-107 MMOL/L Carbon Dioxide Level 23 21-32 MMOL/L Anion Gap 11 5-14 MMOL/L Blood Urea Nitrogen 27 H 7-18 MG/DL Creatinine 1.08 0.60-1.30 MG/DL Estimat Glomerular Filtration Rate 50 BUN/Creatinine Ratio 25 Glucose Level 106 H 70-105 MG/DL Calcium Level 9.0 8.5-10.1 MG/DL Corrected Calcium 9.2 8.5-10.1 MG/DL Total Bilirubin 0.3 0.1-1.0 MG/DL Aspartate Amino Transf (AST/SGOT) 15 5-34 U/L Alanine Aminotransferase (ALT/SGPT) 11 0-55 U/L Alkaline Phosphatase 111 40-136 U/L Troponin I < 0.028 <0.028 NG/ML Total Protein 7.0 6.4-8.2 GM/DL Albumin 3.7 3.2-4.5 GM/DL My Orders Orders - JOVANA BANKS APRN Cbc With Automated Diff (03/29/21 19:37) Protime With Inr (03/29/21 19:37) Partial Thromboplastin Time (03/29/21 19:37) Comprehensive Metabolic Panel (03/29/21 19:37) Fibrin Degradation Products (03/29/21 19:37) Troponin I (03/29/21 19:37) Ua Culture If Indicated (03/29/21 19:37) Chest 1 View, Ap/Pa Only (03/29/21 19:37) Ekg Tracing (03/29/21 19:37) Accucheck Stat ONCE (03/29/21 19:37) Ed Iv/Invasive Line Start (03/29/21 19:37) Ed Iv/Invasive Line Start (03/29/21 19:37) Vital Signs Stroke Patient Q15M (03/29/21 19:37) O2 (03/29/21 19:37) Intake & Output 06,14,22 (03/29/21 19:37) Monitor-Rhythm Ecg Trace Only (03/29/21 19:37) Dysphagia Screening Tool (03/29/21 19:37) Post Thrombolytic Adminstratio (03/29/21 19:37) Ct Angio Head/Neck (03/29/21 19:37) Lactated Ringers (Lr 1000 Ml Iv Solution (03/29/21 21:15) Vital Signs/I&O 03/29/21:22 Temp 36.5 Pulse 74 Resp 20 B/P (MAP) 149/113 (125) Pulse Ox 96 O2 Delivery Room Air Capillary Refill : Less Than 3 Seconds Blood Pressure Mean: 125 Point of Care Testing Finger Stick Blood Glucose: 100 Departure Communication (Admissions) 2206-she does have ECG strips from her 6-lead ECG at home that they have and 1 of these does show an episode of paroxysmal atrial fibrillation. Again she has had the watchman device placed and is on a baby aspirin daily. CT angio was unremarkable. Without treatment her pressure has fallen to 145/87. I spoke with Dr. Navas from optometry. He will follow up with the patient on Thursday and is reassured given the brief nature of these episodes. There is an after- hours phone number available at their clinic on voicemail. Patient can call the morale officer dimension warehouse supervisor to be seen this weekend if symptoms recur or are worse. She did have a headache at the time of this visual change earlier so an ocular migraine is within the differential. Impression Primary Impression: Amaurosis fugax of right eye Disposition: HOME, SELF-CARE Condition: Stable Departure-Patient Inst. Decision time for Depature: 22:10 Referrals: HANSA ONEIL MD (PCP/Family) Primary Care Physician Patient Instructions: NO INSTRUCTIONS GIVEN Add. Discharge Instructions: 1. Follow-up with Dr. Navas on Thursday. Return to ER for any concerns in the meantime. You can also call Dr. Navas's office for the after-hours phone number this weekend. Given that you had a headache with these visual changes and ocular migraine is possible. Continue your baby aspirin. Return to ER for any concerns. All discharge instructions reviewed with patient and/or family. Voiced understanding. Copy Copies To 1: ESTHER NAVAS OD; HANSA ONEIL MD, PETER J APRN Mar 29, 2021 20:34
[2021-03-29 20:36] LABS: BASOPHILS # (AUTO) 0.1 10^3/uL (0.0-0.1); BASOPHILS % (AUTO) 1 % (0-10); EOSINOPHILS # (AUTO) 0.2 10^3/uL (0.0-0.3); EOSINOPHILS % (AUTO) 2 % (0-10); HEMATOCRIT 38 % (35-52); HEMOGLOBIN 11.6 g/dL (11.5-16.0); LYMPHOCYTES # (AUTO) 4.2 10^3/uL (1.0-4.0); LYMPHOCYTES % (AUTO) 40 % (12-44); MEAN CORPUSCULAR HEMOGLOBIN 28 pg (25-34); MEAN CORPUSCULAR HGB CONC 30 g/dL (32-36); MEAN CORPUSCULAR VOLUME 92 fL (80-99); MEAN PLATELET VOLUME 11.2 fL (9.0-12.2); MONOCYTES # (AUTO) 0.9 10^3/uL (0.0-1.0); MONOCYTES % (AUTO) 8 % (0-12); NEUTROPHILS # (AUTO) 5.2 10^3/uL (1.8-7.8); NEUTROPHILS % (AUTO) 49 % (42-75); PLATELET COUNT 221 10^3/uL (130-400); WHITE BLOOD COUNT 10.6 10^3/uL (4.3-11.0)
[2021-03-29 20:47] LABS: ALBUMIN 3.7 GM/DL (3.2-4.5); CHLORIDE 105 MMOL/L (98-107); POTASSIUM 3.9 MMOL/L (3.6-5.0); SODIUM 139 MMOL/L (135-145)
[2021-03-29 20:49] LABS: GLUCOSE 106 MG/DL (70-105)
[2021-03-29 20:50] LABS: FIBRIN DEGRADATION PRODUCTS 0.64 UG/ML (0.00-0.49); INR 0.9 (0.8-1.4); PROTHROMBIN TIME PATIENT 12.1 SEC (12.2-14.7)
[2021-03-29 20:51] LABS: BILIRUBIN,TOTAL 0.3 MG/DL (0.1-1.0); CARBON DIOXIDE 23 MMOL/L (21-32)
--- NOTE | 2021-03-29 20:51 | Diagnostic Imaging Report ---
INDICATION: CVA. EXAMINATION: Portable chest at 8:44 PM. Heart size and pulmonary vascularity are normal. Lungs are clear. There are no effusions or pneumothoraces. IMPRESSION: Negative chest. Dictated by: Dictated on workstation # [id number]
[2021-03-29 20:53] LABS: ALKALINE PHOSPHATASE 111 U/L (40-136); CREATININE SERUM 1.08 MG/DL (0.60-1.30); GFR ESTIMATED 50
[2021-03-29 20:54] LABS: BUN/CREATININE RATIO 25
[2021-03-29 20:56] LABS: ALANINE AMINOTRANSFERASE 11 U/L (0-55)
[2021-03-29] MEDS ORDERED: LACTATED RINGERS 1,000 ML IV SCH (21:15)
--- NOTE | 2021-03-29 21:51 | Diagnostic Imaging Report ---
PROCEDURE: CT angiography of the head and CT angiography of the neck with and without contrast. TECHNIQUE: Contiguous noncontrast images were obtained from the skull base through the vertex. After intravenous contrast administration, helical CT angiography of the neck was performed. Source data was reformatted into 3D MIP projections. Delayed post contrast acquisition was also obtained. Auto Exposure Controls were utilized during the CT exam to meet ALARA standards for radiation dose reduction. INDICATION: Neurologic deficits. Brachiocephalic origins are widely patent. The common, internal and external carotid arteries are widely patent. Both vertebral arteries are widely patent with left being slightly dominant. Intracranially, there is no aneurysm, arterial venous malformation or large vessel occlusion seen. The ventricles are normal in size, shape and position. There are no masses or hemorrhages. There are no extra-axial fluid collections. Postcontrast images do not show any abnormal areas of enhancement. IMPRESSION: Unremarkable CTA head and neck. Dictated by: Dictated on workstation # [id number]
[2021-03-29 22:15] VITALS: BP 145/87
== END 2021-03-29 22:18 | disposition home or self-care (01) ==
LOC: EDUNIT# 18:37 → ER 18:39
DX: G45.3 Amaurosis fugax (principal); G47.30 Sleep apnea, unspecified; I10 Essential (primary) hypertension; I48.91 Unspecified atrial fibrillation; K21.9 Gastro-esophageal reflux disease without esophagitis; E78.00 Pure hypercholesterolemia, unspecified; E03.9 Hypothyroidism, unspecified; Z79.890 Hormone replacement therapy; Z79.01 Long term (current) use of anticoagulants; Z79.899 Other long term (current) drug therapy
CPT/HCPCS: 36415; 70496; 70498; 71045; 80053; 81000; 82947; 84484; 85025; 85379; 85610; 85652; 85730; 93005; 93041

== ENCOUNTER → 2021-04-10 | Outpatient (CLI) | payer MEDICARE | LOC: LABNPT 08:23 | DX: Z01.812 Encounter for preprocedural laboratory examination (principal); Z20.822 Contact with and (suspected) exposure to COVID-19 | CPT/HCPCS: 87635 ==

== ENCOUNTER → 2021-06-11 | Outpatient (CLI) | payer MEDICARE | LOC: CARD 10:00 | PROVIDERS: ATTEND Internal Medicine Cardiovascular Disease | DX: I34.0 Nonrheumatic mitral (valve) insufficiency (principal); I49.9 Cardiac arrhythmia, unspecified; I25.10 Atherosclerotic heart disease of native coronary artery without angina pectoris; I11.9 Hypertensive heart disease without heart failure | CPT/HCPCS: 93225; 93226; 93306 ==

== ENCOUNTER 2021-07-18 18:48 | Emergency (ER) | payer MEDICARE ==
[~2021-07-18] VITALS: Ht 180 cm; Wt 122.0 kg
[2021-07-18] MEDS ORDERED: LORazepam 0.5 MG (ATIVAN) TABLET PO ONE (19:15)
[2021-07-18] MEDS ORDERED: ASPIRIN 81 MG CHEW (CHILDREN'S ASA) PO ONE (19:15)
--- NOTE | 2021-07-18 19:18 | ED Chest Pain ---
General Stated Complaint: CHEST PAIN,HEART PALPITATION,SOA Source: patient Exam Limitations: no limitations History of Present Illness Date Seen by Provider: Jul 18, 2021 Time Seen by Provider: 19:13 Initial Comments To ER by private vehicle accompanied by her with reports of palpitations. She reports a sensation of "an alarm clock wrapped in cloth" in her chest going off every 3 to 4 minutes lasting for about 8 seconds at a time as a vibration. She also reports chest pressure at 7 out of 10. She does feel anxious. Primary care is Dr. Oneil. Cardiology is Dr. Kierra christy and [facility]. History of atrial fibrillation status post ablation x2 and watchman device implantation at the [facility]. She is also had a mitral valve clip. She is maintained on flecainide 150 mg p.o. twice daily as well as metoprolol 150 mg p.o. twice daily. She had a baby aspirin this morning. She has no history of coronary stenting. They have a home 6-lead EKG which they have done multiple times today and over the past few days. 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 NTG SL PRODUCE CLERK: No Associated Symptoms: shortness of breath Allergies and Home Medications Allergies Coded Allergies: Sulfa (Sulfonamide Antibiotics) (Verified Allergy, Unknown, 06/01/06) Patient Home Medication List Home Medication List Reviewed: Yes Apixaban (Eliquis) 5 Mg Tablet, 5 MG PO BID Prescribed by: LARRY LOZADA on 07/03/19 0851 Atorvastatin Calcium (Atorvastatin Calcium) 20 Mg Tablet, 20 MG PO DAILY, (Reported) Entered as Reported by: PACO EATON on 09/14/19 0956 Cholecalciferol (Vitamin D3) (Vitamin D3) 2,000 Unit Tablet, 2,000 UNIT PO DAILY, (Reported) Entered as Reported by: DARSHAN ERICKSON on 06/07/19 1506 Cholecalciferol (Vitamin D3) (Vitamin D3) 50,000 Unit Capsule, 50,000 UNIT PO TWICE MONTHLY, (Reported) Entered as Reported by: DARSHAN ERICKSON on 06/07/19 1506 Citalopram Hydrobromide (Citalopram HBr) 20 Mg Tablet, 20 MG PO DAILY, (Reported) Entered as Reported by: DARSHAN ERICKSON on 06/07/19 1506 Cyanocobalamin (Vitamin B-12) (Vitamin B-12) 500 Mcg Tablet, 500 MCG PO DAILY, (Reported) Entered as Reported by: DARSHAN ERICKSON on 06/07/19 150 Estrogens, Conjugated (Premarin) 0.9 Mg Tablet, 0.9 MG PO DAILY, (Reported) Entered as Reported by: DARSHAN ERICKSON on 06/07/19 150 Flecainide Acetate (Flecainide Acetate) 100 Mg Tablet, 50 MG PO BID Prescribed by: LARRY LOZADA on 07/03/19 0851 Gabapentin (Gabapentin) 300 Mg Capsule, 300 MG PO TID, (Reported) Entered as Reported by: DARSHAN ERICKSON on 06/07/19 150 Hydrochlorothiazide (Hydrochlorothiazide) 25 Mg Tablet, 25 MG PO DAILY, (Reported) Entered as Reported by: DARSHAN ERICKSON on 06/07/19 150 Levothyroxine Sodium (Levothyroxine Sodium) 125 Mcg Tablet, 250 MCG PO DAILY, (Reported) Entered as Reported by: DARSHAN ERICKSON on 06/07/19 150 Meloxicam (Meloxicam) 15 Mg Tablet, 15 MG PO DAILY, (Reported) Entered as Reported by: DARSHAN ERICKSON on 06/07/19 150 Metoprolol Succinate (Metoprolol Succinate) 50 Mg Tab.er.24h, 75 MG PO DAILY, (Reported) Entered as Reported by: DOC ZENG on 07/02/19 1418 Pantoprazole Sodium (Pantoprazole Sodium) 40 Mg Tablet.dr, 40 MG PO DAILY, (Reported) Entered as Reported by: DARSHAN ERICKSON on 06/07/19 150 Review of Systems Review of Systems Constitutional: see HPI EENTM: No Symptoms Reported Respiratory: See HPI, Shortness of Air Cardiovascular: See HPI, Chest Pain Gastrointestinal: No Symptoms Reported Genitourinary: No Symptoms Reported Musculoskeletal: no symptoms reported Skin: no symptoms reported Psychiatric/Neurological: No Symptoms Reported Endocrine: No Symptoms Reported Past Zfwhdyd-Vwaqfc-Kcoyro Hx Immunizations Up To Date First/Initial COVID19 Vaccinat: COVID VACC X2 Past Medical History Surgeries: Yes Hysterectomy, Joint Replacement, Orthopedic, Thyroidectomy Respiratory: Yes Sleep Apnea Currently Using CPAP: Yes Cardiac: Yes (mitral valve leaky) Atrial Fibrillation, High Cholesterol, Hypertension, Valvular Heart Disease Neurological: No Reproductive Disorders: Yes (OVARIAN CYST/FIBROID TUMOR/ENDOMETRIOSIS/COMPLETE HYSTERECTOMY) 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 Sexually Transmitted Disease: No Genitourinary: No Gastrointestinal: Yes Gastroesophageal Reflux, Hemorrhoids Musculoskeletal: Yes Endocrine: Yes Hypothyroidsim HEENT: Yes Cataract Cancer: Yes Thyroid Did You Recieve Any Treatments: Yes What Type of Treatment Did You: Radiation, Surgical Intervention Psychosocial: No Integumentary: No Blood Disorders: No Family Medical History FH: Raynaud's phenomenon G8 SISTER, Onset:Unknown FH: hypothyroidism G8 SISTER, Onset:Unknown FH: lung cancer 19 FATHER, , Onset:50's - 60 FH: macular degeneration 19 MOTHER, Onset:Unknown FH: multiple sclerosis G8 BROTHER, Onset:50's - 60 FH: stroke 19 FATHER, , Onset:50's - 60 Hypertension 19 FATHER, , Onset:40's - 50 19 MOTHER, Onset:Unknown TIAs G8 SISTER, Onset:20s - No Pertinent Family Hx Physical Exam Vital Signs Vital Signs - First Documented 07/18/21 19:00 Temp 35.5 Pulse 70 Resp 18 B/P (MAP) 154/94 (114) Capillary Refill : Height, Weight, BMI Height: 6'1.00" Weight: 240lbs. oz. 108.015035fm; 38.00 BMI Method: General Appearance: No Apparent Distress, WD/WN, Anxious (She and at the bedside are both anxious appearing. They are fixated on the personal lines account executive showing sinus arrhythmia and pointing out to me on the monitor every time that she has 1 of these vibration sensations which fails to demonstrate any ectopy on telemetry at the bedside. They have a thick stack of 6-lead EKGs that they have done at home over the course of the past few days--some of these do show questionable atrial fibrillation though on the ones that are questionable it could easily be artifact. Either way the rate is never gone above 100.) Neck: Full Range of Motion, Normal Inspection Respiratory: No Accessory Muscle Use, No Respiratory Distress Cardiovascular: Normal Peripheral Pulses, Other (Irregular heart rate consistent with the sinus arrhythmia seen on telemetry and EKG.) Gastrointestinal: Non Tender, Soft Extremity: Normal Capillary Refill, Normal Inspection Neurologic/Psychiatric: Alert, Oriented x3 Skin: Normal Color, Warm/Dry Progress/Results/Core Measures Results/Orders Lab Results Laboratory Tests Test 07/18/21 19:20 Range/Units White Blood Count 9.5 4.3-11.0 10^3/uL Red Blood Count 4.38 3.80-5.11 10^6/uL Hemoglobin 11.8 11.5-16.0 g/dL Hematocrit 38 35-52 % Mean Corpuscular Volume 87 80-99 fL Mean Corpuscular Hemoglobin 27 25-34 pg Mean Corpuscular Hemoglobin Concent 31 L 32-36 g/dL Red Cell Distribution Width 13.6 10.0-14.5 % Platelet Count 247 130-400 10^3/uL Mean Platelet Volume 11.3 9.0-12.2 fL Immature Granulocyte % (Auto) 0 % Neutrophils (%) (Auto) 44 42-75 % Lymphocytes (%) (Auto) 47 H 12-44 % Monocytes (%) (Auto) 7 0-12 % Eosinophils (%) (Auto) 2 0-10 % Basophils (%) (Auto) 0 0-10 % Neutrophils # (Auto) 4.1 1.8-7.8 10^3/uL Lymphocytes # (Auto) 4.4 H 1.0-4.0 10^3/uL Monocytes # (Auto) 0.7 0.0-1.0 10^3/uL Eosinophils # (Auto) 0.2 0.0-0.3 10^3/uL Basophils # (Auto) 0.0 0.0-0.1 10^3/uL Immature Granulocyte # (Auto) 0.0 0.0-0.1 10^3/uL Prothrombin Time 12.2 12.2-14.7 SEC INR Comment 0.9 0.8-1.4 Activated Partial Thromboplast Time 32 24-35 SEC Sodium Level 138 135-145 MMOL/L Potassium Level 4.0 3.6-5.0 MMOL/L Chloride Level 106 98-107 MMOL/L Carbon Dioxide Level 19 L 21-32 MMOL/L Anion Gap 13 5-14 MMOL/L Blood Urea Nitrogen 25 H 7-18 MG/DL Creatinine 1.06 0.60-1.30 MG/DL Estimat Glomerular Filtration Rate 56 BUN/Creatinine Ratio 24 Glucose Level 104 70-105 MG/DL Calcium Level 9.4 8.5-10.1 MG/DL Corrected Calcium 9.5 8.5-10.1 MG/DL Magnesium Level 1.8 1.6-2.4 MG/DL Total Bilirubin 0.3 0.1-1.0 MG/DL Aspartate Amino Transf (AST/SGOT) 19 5-34 U/L Alanine Aminotransferase (ALT/SGPT) 18 0-55 U/L Alkaline Phosphatase 110 40-136 U/L Myoglobin 34.0 10.0-92.0 NG/ML Troponin I < 0.028 <0.028 NG/ML B-Type Natriuretic Peptide 97.9 <100.0 PG/ML Total Protein 7.3 6.4-8.2 GM/DL Albumin 3.9 3.2-4.5 GM/DL My Orders Orders - JOVANA BANKS [employer] Cbc With Automated Diff (07/18/21 19:10) Magnesium (07/18/21 19:10) Chest 1 View, Ap/Pa Only (07/18/21 19:10) Ekg Tracing (07/18/21 19:10) Comprehensive Metabolic Panel (07/18/21 19:10) Myoglobin Serum (07/18/21 19:10) Protime With Inr (07/18/21 19:10) Partial Thromboplastin Time (07/18/21 19:10) O2 (07/18/21 19:10) Monitor-Rhythm Ecg Trace Only (07/18/21 19:10) Lipid Panel (07/19/21 06:00) Ed Iv/Invasive Line Start (07/18/21 19:10) Bnp Jaden (07/18/21 19:10) Troponin I [place] (07/18/21 19:10) Aspirin Chewable Tablet (Baby Aspirin Ch (07/18/21 19:15) Lorazepam Tablet (Ativan Tablet) (07/18/21 19:15) Medications Given in ED Current Medications Medications Dose Ordered Sig/Chari Route Start Time Stop Time Status Last Admin Dose Admin Aspirin 243 mg ONCE ONCE PO 07/18/21 19:15 07/18/21 19:16 DC 07/18/21 19:19 243 MG Lorazepam 0.5 mg ONCE ONCE PO 3/17/22 19:15 07/18/21 19:16 DC 07/18/21 19:19 0.5 MG Vital Signs/I&O 07/18/21 19:00 Temp 35.5 Pulse 70 Resp 18 B/P (MAP) 154/94 (114) Departure Communication (Admissions) 2053-troponin is negative. She had a cardiac catheterization here 2 years ago showing mild coronary disease not requiring any intervention. She has had sinus arrhythmia here but NO actual atrial fibrillation has been visualized on telemetry or EKG during her stay. Reports persistent intermittent vibratory sensations in her chest.. Impression Primary Impression: Sinus arrhythmia seen on electrocardiography Additional Impression: Palpitations Disposition: HOME, SELF-CARE Condition: Stable Departure-Patient Inst. Decision time for Depature: 20:19 Referrals: HANSA ONEIL MD (PCP/Family) Primary Care Physician Patient Instructions: Palpitations (DC) Add. Discharge Instructions: 1. Call either Dr. Lozada or your entrepreneur in [place] tomorrow. Return to ER for any concerns. Copy Copies To 1: LARRY LOZADA MD; HANSA ONEIL MD, PETER J APRN Jul 18, 2021 19:18
[2021-07-18 19:28] LABS: BASOPHILS % (AUTO) 0 % (0-10); EOSINOPHILS # (AUTO) 0.2 10^3/uL (0.0-0.3); EOSINOPHILS % (AUTO) 2 % (0-10); HEMATOCRIT 38 % (35-52); HEMOGLOBIN 11.8 g/dL (11.5-16.0); LYMPHOCYTES # (AUTO) 4.4 10^3/uL (1.0-4.0); LYMPHOCYTES % (AUTO) 47 % (12-44); MEAN CORPUSCULAR HEMOGLOBIN 27 pg (25-34); MEAN CORPUSCULAR HGB CONC 31 g/dL (32-36); MEAN CORPUSCULAR VOLUME 87 fL (80-99); MEAN PLATELET VOLUME 11.3 fL (9.0-12.2); MONOCYTES # (AUTO) 0.7 10^3/uL (0.0-1.0); MONOCYTES % (AUTO) 7 % (0-12); NEUTROPHILS # (AUTO) 4.1 10^3/uL (1.8-7.8); NEUTROPHILS % (AUTO) 44 % (42-75); PLATELET COUNT 247 10^3/uL (130-400); WHITE BLOOD COUNT 9.5 10^3/uL (4.3-11.0)
[2021-07-18 19:52] LABS: INR 0.9 (0.8-1.4); PROTHROMBIN TIME PATIENT 12.2 SEC (12.2-14.7)
[2021-07-18 19:59] LABS: ALBUMIN 3.9 GM/DL (3.2-4.5); BILIRUBIN,TOTAL 0.3 MG/DL (0.1-1.0); CALCIUM 9.4 MG/DL (8.5-10.1); CREATININE SERUM 1.06 MG/DL (0.60-1.30); MAGNESIUM 1.8 MG/DL (1.6-2.4); TOTAL PROTEIN 7.3 GM/DL (6.4-8.2)
--- NOTE | 2021-07-18 20:08 | Diagnostic Imaging Report ---
INDICATION: Chest pain. COMPARISON: 03/29/2021. FINDINGS: Single frontal view of the chest demonstrates normal heart size and pulmonary vascularity. The lungs are well aerated and clear. No large pleural effusion or pneumothorax is seen. The visualized osseous structures show no acute abnormality. IMPRESSION: No acute cardiopulmonary process. Dictated by: Dictated on workstation # [id number]
[2021-07-18 21:00] VITALS: BP 170/100
== END 2021-07-18 21:02 | disposition home or self-care (01) ==
LOC: EDUNIT# 18:48 → ER 18:50
DX: I49.8 Other specified cardiac arrhythmias (principal); R00.2 Palpitations
CPT/HCPCS: 36415; 71045; 80053; 83735; 83874; 83880; 84484; 85025; 85610; 85730; 93005; 93041

== ENCOUNTER → 2021-09-06 | Outpatient (CLI) | payer MEDICARE | LOC: CARD 10:11 | PROVIDERS: ATTEND Internal Medicine Cardiovascular Disease | DX: I07.1 Rheumatic tricuspid insufficiency (principal); I25.10 Atherosclerotic heart disease of native coronary artery without angina pectoris; I11.9 Hypertensive heart disease without heart failure | CPT/HCPCS: 93306 ==

== ENCOUNTER → 2022-02-25 | Outpatient (CLI) | payer MEDICARE ==
--- NOTE | 2022-02-25 16:51 | Diagnostic Imaging Report ---
Indication: Routine screening. Correlation is made with prior mammograms 04/17/2020 and 03/29/2019. 2-D and 3-D bilateral screening mammography was performed with CAD. Both breasts are heterogeneously dense, limiting the sensitivity of mammography. There is a nodular density in the medial aspect of the right breast that appears more prominent than prior exams. Additional views are recommended for further evaluation. Left breast contains a cardiac loop recorder. No mass or malignant-appearing microcalcifications are seen. Axillae are unremarkable. IMPRESSION: BI-RADS Category 0 Right breast density. Additional views are recommended for further evaluation. ACR BI-RADS Category 0: Incomplete. (Needs additional imaging evaluation). Result letter will be mailed to the patient. Note: At least 10% of breast cancer is not imaged by mammography. Dictated by: Dictated on workstation # [id number]
== END ==
LOC: RAD 08:48
PROVIDERS: ATTEND Surgery
DX: Z12.31 Encounter for screening mammogram for malignant neoplasm of breast (principal)
CPT/HCPCS: 77063; 77067

== ENCOUNTER → 2022-03-19 | Outpatient (CLI) | payer MEDICARE ==
--- NOTE | 2022-03-19 14:08 | Diagnostic Imaging Report ---
Indication: Right breast density. Patient presents for additional views. Correlation is made with the screening study from 02/25/2022. Unilateral right 2-D and 3-D diagnostic mammography was performed with CAD. This included spot compression CC, spot compression ML as well as conventional 90 degrees lateral views. CAD is utilized. The current study was also evaluated with a Computer Aided Detection (CAD) system. Additional views show persistent nodular density slightly medial right breast at mid depth approximately 9 cm from the nipple. In addition, there is a nodular density in the superior right breast approximately 11 cm from the nipple only seen on the MLO view. No suspicious microcalcifications are seen. IMPRESSION: BI-RADS 0 Persistent nodular densities, as described. Further evaluation ultrasound is recommended and will be performed today. ACR BI-RADS Category 0: Incomplete. (Needs additional imaging evaluation). Result letter will be mailed to the patient. Note: At least 10% of breast cancer is not imaged by mammography. Dictated by: Dictated on workstation # [id number]
--- NOTE | 2022-03-19 19:17 | Diagnostic Imaging Report ---
INDICATION: Right breast density. COMPARISON: Correlation is made with diagnostic mammogram earlier the same day. EXAMINATION: Sonographic interrogation of the upper and medial aspect of the right breast was performed. FINDINGS: There is a cyst at the 12:00 location, 6 cm from the nipple, measuring approximately by 5 mm x 4 mm x 6 mm. In addition, there is a slightly lobulated hypoechogenicity at the 12:30 to 1:00 location of right breast, 8-9 cm from the nipple measuring 8 mm x 5 mm x 8 mm. This may account for the density noted in the superior right breast on the MLO view at posterior depth. It is uncertain if this represents a true nodule versus an island of fibroid glandular tissue. No other masses are seen. IMPRESSION: 1. Simple cyst at 12:00 location. 2. Lobulated hypoechogenicity at 12:30 to 1:00 location, 8-9 cm from the nipple, perhaps accounting for the density noted in the superior posterior right breast on mammogram. Tissue sampling is recommended. This would be amenable to ultrasound-guided biopsy. ACR BI-RADS Category 4: Suspicious abnormality. Result letter will be mailed to the patient. Note: At least 10% of breast cancer is not imaged by mammography. Dictated by: Dictated on workstation # [id number]
== END ==
LOC: RAD 12:45
PROVIDERS: ATTEND Surgery
DX: N60.01 Solitary cyst of right breast (principal)
CPT/HCPCS: 76642; 77065; G0279

== ENCOUNTER → 2022-03-31 | Outpatient (CLI) | payer MEDICARE ==
[~2022-03-31] VITALS: Ht 180.3 cm; Wt 115.9 kg
[~2022-03-31] MED LIST changes: +LIDOCAINE 1% INJ 30 ML (XYLOCAINE) VIAL INJ ONE
--- NOTE | 2022-03-31 12:30 | Diagnostic Imaging Report ---
INDICATION: Status post right breast ultrasound-guided biopsy. Unilateral right 2-D CC and ML mammography was performed after patient underwent ultrasound-guided biopsy. There is a marker clip in the upper slightly inner aspect of the right breast posterior depth. IMPRESSION: Marker clip placement, as described. Dictated on workstation # [id number]
--- NOTE | 2022-03-31 14:25 | Diagnostic Imaging Report ---
INDICATION: Right breast nodule. Patient presents for ultrasound-guided biopsy. DETAILS OF THE PROCEDURE: The patient was brought to the sonographic suite and placed on the table in the supine position. Ultrasound imaging of the right breast was performed to evaluate for an appropriate entry site. The right breast was then prepped and draped in the usual sterile fashion. A small amount of 1% lidocaine was utilized for local anesthesia. A total of 5 core biopsies was obtained of the lobulated hypoechoic nodule at the 12:30 to 1 o'clock location of the right breast utilizing a 14-gauge Achieve needle. A marker clip was then deployed. Hemostasis was obtained using manual compression. The patient tolerated the procedure well and was sent for a post procedure mammogram in satisfactory condition. IMPRESSION: Successful ultrasound-guided core biopsy of the lobulated nodule at the 12:30 to 1 o'clock location of the right breast. Pathology results are currently pending. Dictated on workstation # [id number]
== END ==
LOC: RAD 10:16
PROVIDERS: ATTEND Surgery
DX: N63.10 Unspecified lump in the right breast, unspecified quadrant (principal); N63.12 Unspecified lump in the right breast, upper inner quadrant
CPT/HCPCS: 19083; 77065; G0279

== ENCOUNTER 2022-10-14 11:31 | Inpatient (IN) | payer MEDICARE ==
[~2022-10-14] VITALS: Ht 180 cm; Wt 137.6 kg
[~2022-10-14 11:31] MED LIST changes: -LIDOCAINE 1% INJ 30 ML (XYLOCAINE) VIAL INJ ONE
[2022-10-14 12:38] LABS: HEMOGLOBIN 11.7 g/dL (11.5-16.0); MEAN PLATELET VOLUME 11.2 fL (9.0-12.2); WHITE BLOOD COUNT 9.5 10^3/uL (4.3-11.0)
[2022-10-14 13:01] LABS: BILIRUBIN,TOTAL 0.8 MG/DL (0.1-1.0); CALCIUM 9.8 MG/DL (8.5-10.1); CREATININE SERUM 1.06 MG/DL (0.60-1.30); POTASSIUM 5.3 MMOL/L (3.6-5.0); TOTAL PROTEIN 7.2 GM/DL (6.4-8.2)
[2022-10-14] MEDS: ENOXAPARIN 40 MG/0.4 ML (LOVENOX) SYR SQ SCH (14:01)
--- NOTE | 2022-10-14 14:26 | Cardiology History & Physical ---
HPI-Cardiology Cardiology Consultation Date of Consultation 10/14/22 Date of Admission Time Seen by Provider: 14:24 Indication: Bradycardia HPI Patient was seen in the office noted to be having bradycardia. Having dizziness and lightheadedness Probably secondary to her medication, we discussed the need to admit her to the hospital. PMH-Cardiology Immunizations Up To Date Date of Pneumonia Vaccine: Apr 13, 2013 Date of Influenza Vaccine: Apr 04, 2019 Surgeries Yes Respiratory Yes Cardiovascular Yes (mitral valve leaky) Neurological No Reproductive System Hx Reproductive Disorders: Yes (OVARIAN CYST/FIBROID TUMOR/ENDOMETRIOSIS/COMPLETE HYSTERECTOMY) Sexually Transmitted Disease: No Hysterectomy Genitourinary No Gastrointestinal Yes Gastroesophageal Reflux, Hemorrhoids Musculoskeletal Yes Endocrine Yes Hypothyroidsim HEENT Yes Cataract Cancer Yes Thyroid Did You Recieve Any Treatments: Yes Type of Treatment: Radiation, Surgical Intervention Psychosocial No Integumentary No Blood Transfusions No Social History Patient Social History Dip or chew tobacco?: No Substance type: Caffeine Alcohol Use?: Yes Family Hx Significant Family History: No Pertinent Family Hx Family History: FH: Raynaud's phenomenon G8 SISTER, Onset:Unknown FH: hypothyroidism G8 SISTER, Onset:Unknown FH: lung cancer 19 FATHER, , Onset:50's - 60 FH: macular degeneration 19 MOTHER, Onset:Unknown FH: multiple sclerosis G8 BROTHER, Onset:50's - 60 FH: stroke 19 FATHER, , Onset:50's - 60 Hypertension 19 FATHER, , Onset:40's - 50 19 MOTHER, Onset:Unknown TIAs G8 SISTER, Onset:20's - 25 ROS-Cardiology Review of Systems General: No Chills, No Night Sweats; Fatigue; No Malaise, No Appetite HEENT: No Head Aches, No Visual Changes, No Eye Pain, No Ear Pain, No Dysphasia, No Sinus Congestion, No Post Nasal Drip, No Sore Throat Pulmonary: No Dyspnea, No Cough, No Pleuritic Chest Pain Cardiovascular: No: Chest Pain, Palpitations, Orthopnea, Paroxysmal Noc. Dyspnea, Edema, Lt Headedness Gastrointestinal: No: Nausea, Vomiting, Abdominal Pain, Diarrhea, Constipation, Melena, Hematochezia Genitourinary: No Dysuria, No Frequency, No Incontinence, No Hematuria, No Retention Musculoskeletal: No: neck pain, shoulder pain, arm pain, back pain, hand pain, leg pain, foot pain Neurological: No: Weakness, Numbness, Incoordination, Change in speech, Confusion, Seizures Home Medications & Allergies Allergies: Coded Allergies: Sulfa (Sulfonamide Antibiotics) (Verified Allergy, Unknown, 06/01/06) Home Medication List Reviewed: Yes Exam-Cardiology Vital Signs Vital Signs Date Time Temp Pulse Resp B/P (MAP) Pulse Ox O2 Delivery O2 Flow Rate FiO2 10/14/22 13:00 78 10/14/22 12:00 22 144/92 (109) 95 Room Air Exam General Appearance: Alert, Oriented X3, Cooperative, No Acute Distress HEENT: Atraumatic, PERRLA Respiratory: Clear to Auscultation, Normal Air Movement Cardiovascular: Regular Rate, Normal S1, Normal S2, No Murmurs, Other (Bradycardia) Abdominal: Normal Bowel Sounds, Soft, No Tenderness, No Hepatosplenomegaly, No Masses Extremities: No Clubbing, No Cyanosis, No Edema, Normal Pulses, No Tenderness/Swelling Skin: No Rashes, No Breakdown, No Significant Lesion Neuro: Normal Gait, Normal Speech, Strength at 5/5 X4 Ext, Normal Tone, Sensation Intact Psych/Mental Status: Mental Status NL, Mood NL Results Labs Labs Laboratory Tests 10/14/22 12:32: White Blood Count 9.5, Red Blood Count 4.64, Hemoglobin 11.7, Hematocrit 38, Mean Corpuscular Volume 82, Mean Corpuscular Hemoglobin 25, Mean Corpuscular Hemoglobin Concent 31L, Red Cell Distribution Width 16.7H, Platelet Count 178, Mean Platelet Volume 11.2, Percent Immature Platelet Fraction 6.9, Sodium Level 139, Potassium Level 5.3H, Chloride Level 106, Carbon Dioxide Level 23, Anion Gap 10, Blood Urea Nitrogen 29H, Creatinine 1.06, Estimat Glomerular Filtration Rate 55, BUN/Creatinine Ratio 27, Glucose Level 88, Calcium Level 9.8, Corrected Calcium 9.8, Total Bilirubin 0.8, Aspartate Amino Transf (AST/SGOT) 27, Alanine Aminotransferase (ALT/SGPT) 17, Alkaline Phosphatase 138H, Total Protein 7.2, Albumin 4.0, Thyroid Stimulating Hormone (TSH) 0.26L A/P-Cardiology Admission Diagnosis Bradycardia Coronary artery disease Hypertension Hyperlipidemia Admission Status: Observation Assessment/Plan Bradycardia, symptomatic, probably secondary to medication We will admit and stop her metoprolol and monitor heart rate response. Evaluate metabolic profile, CBC and EKG Chest pain nonspecific etiology, resolved, continue to monitor. Nonobstructive coronary artery disease per cardiac catheterization done June 2019. Paroxysmal atrial fibrillation, Had atrial flutter and fibrillation ablation done by Dr. Hinton at in January 2020. Had watchman device implanted by Dr. Hinton done in June 2020, Follow-up at . Maintained on dofetilide 250 mcg twice daily, taking Toprol-XL 50 mg twice a day. Still having multiple episodes of palpitation. Failed dofetilide, currently maintained on amiodarone. Patient had extensive ablation done on October 03, [address] Hniton, patient has a follow-up appointment later this month. Patient complaining of dizziness and lightheadedness. EKG showing sinus bradycardia, HR 39. She is having symptomatic bradycardia in the office today. Planning to d/c Toprol XL, however, I would feel better if she would be monitored in the hospital for the next 24 hours for monitoring. 2D echo was done on September 06, 2021 with normal LV size, EF 55 to 60%, left atrium 4.5 point centimeter, mild to moderate tricuspid regurgitation, PA pressure 55 to 60 mmHg [id number] score 3, Eliquis was discontinued and January 2022. Patient has a watchman device. Palpitations, reporting improvement, occasional palpitations, overall feeling better Severe mitral regurgitation, had mitral valve clip done by Dr. Patterson in November 2019, recovered well and doing very well. 2D echo was done on September 06, 2021 with significant improvement. Continue to monitor Hypertension, good control on current medication. Continue to monitor Hyperlipidemia maintained on Lipitor 20 mg daily. No recent lab work done, I will evaluate lipid profile and metabolic profile Gastroesophageal reflux disease maintained on Protonix Anxiety maintained on citalopram Nonobstructive carotid artery stenosis per carotid duplex done in September 2020, I will evaluate carotid ultrasound Hypothyroidism maintained on thyroid replacement managed by Dr. Hubbard Peripheral neuropathy, followed by primary care physician LARRY HILLS MD Oct 14, 2022 14:26
[2022-10-14] MEDS ORDERED: VNL37.5T PO (14:55)
[2022-10-14] MEDS ORDERED: CHOL200059 PO (14:55)
[2022-10-14] MEDS ORDERED: LEVO200T6 PO (14:55)
[2022-10-14] MEDS ORDERED: CHOL10007 PO (14:55)
[2022-10-14] MEDS ORDERED: EMPA10TA PO (14:55)
[2022-10-14] MEDS ORDERED: ACET-2267 PO (14:55)
[2022-10-14] MEDS ORDERED: ASPI-1238 PO (14:55)
[2022-10-14] MEDS ORDERED: LEVO50TA6 PO (14:55)
[2022-10-14] MEDS ORDERED: SPIR25TA5 PO (14:55)
[2022-10-14] MEDS ORDERED: FLEC100T PO (14:55)
--- NOTE | 2022-10-14 16:21 | Tele-ICU Consult ---
History of Present Illness History of Present Illness Date Seen by Provider: Oct 14, 2022 Time Seen by Provider: 16:12 Date of Admission eICU consult 72 yo F sent from MD office due to symptomatic bradycardia, has been on metoprolol Hx of a fib, flutter, had ablation in 2019, Watchman device planted 06/24 Has severe mitral regurg. mitral valve clip done 11/20 PMH CAD, HLD-on statin, HTN, SPAP elevated on previous echo, 55-60 ED PE awake and alert, Lungs clear Heart RRR, rate was 78, BP 144/92, SpO2 98% RA Abd soft, no leg edema no neuro deceits A] Bradycardia, now better P] Observe for 24 hours, hold beta les Reason for Visit: Bradycardia Allergies and Home Medications Allergies Coded Allergies: Sulfa (Sulfonamide Antibiotics) (Verified Allergy, Unknown, 06/01/06) Home Medications Acetaminophen 500 Mg Tablet, 1,000 MG PO Q8H PRN for PAIN-MILD (1-4), (Reported) Aspirin 81 Mg Tablet.dr, 81 MG PO DAILY, (Reported) Atorvastatin Calcium 20 Mg Tablet, 20 MG PO DAILY, (Reported) Cholecalciferol (Vitamin D3) 25 Mcg (1000 Unit) Capsule, 25 MCG PO DAILY, (Reported) Empagliflozin 10 Mg Tablet, 10 MG PO DAILY, (Reported) Flecainide Acetate 100 Mg Tablet, 100 MG PO BID, (Reported) Levothyroxine Sodium 50 Mcg Tablet, 50 MCG PO DAILY, (Reported) TAKES 50MCG +200MCG TOGETHER Levothyroxine Sodium 200 Mcg Tablet, 200 MCG PO DAILY, (Reported) TAKES 50MCG +200MCG TOGETHER Metoprolol Succinate 50 Mg Tab.er.24h, 75 MG PO DAILY, (Reported) TAKES 1 & (50MG) TAB Spironolactone 25 Mg Tablet, 25 MG PO DAILY, (Reported) Venlafaxine HCl 37.5 Mg Tab, 37.5 MG PO DAILY, (Reported) Past Medical/Social/Family Hx Patient Social History Tobacco Use?: No Use of E-Cig and/or Vaping dev: No Substance use?: Yes Substance type: Caffeine Substance frequency: Daily Alcohol Use?: Yes Alcohol type: Wine Alcohol Frequency: Several times a month Pt stated abuse/neglect: No Immunizations Up To Date Influenza Vaccine Up-to-Date: No; Not Current First/Initial COVID19 Vaccinat: COVID VACC X2 Second COVID19 Vaccination Kaushik: COVID VACC X2 Tetanus Booster (TDap): Unknown Hepatitis A: No Hepatitis B: No TB Skin Test: None Date of Pneumonia Vaccine: Apr 13, 2013 Current Status status: No status: No Advance Directives: No Communicates: Verbally Primary Language: [place] Preferred Spoken Language: [place] Is interpretation needed?: No Sensory deficits: Vision impairment Implanted or Applied Medical D: Heart mechanical device, Other Review of Systems Constitutional: see HPI EENTM: see HPI Respiratory: see HPI Cardiovascular: see HPI Gastrointestinal: see HPI Genitourinary: see HPI Musculoskeletal: see HPI Skin: see HPI Psychiatric/Neurological: See HPI Focused Exam Height, Weight, BMI Height: 6'1.00" Weight: 240lbs. oz. 108.442411bc; 42.59 BMI Method: Exam Exam Patient acknowledged, consented, and participated in this virtual visit which was conducted using real time audio/video Vital Signs Date Time Temp Pulse Resp B/P (MAP) Pulse Ox O2 Delivery O2 Flow Rate FiO2 10/14/22 16:00 98 Room Air 10/14/22 14:00 54 16 141/78 (99) 100 Room Air 10/14/22 13:00 53 20 135/98 (110) 100 Room Air 10/14/22 13:00 78 10/14/22 12:00 60 22 144/92 (109) 95 Room Air 10/14/22 12:00 100 Room Air 10/14/22 11:57 46 10/14/22 11:53 45 20 100/96 (97) 99 Room Air Height & Weight Height: 6'1.00" Weight: 240lbs. oz. 108.702705dl; 42.59 BMI Method: General Appearance: No Apparent Distress Respiratory: Lungs Clear Cardiovascular: Regular Rate, Rhythm Gastrointestinal: normal bowel sounds, non tender, soft Extremity: No Pedal Edema Neurologic/Psychiatric: Alert, Oriented x3 Results Lab Laboratory Tests 10/14/22 12:32 Assessment/Plan Assessment/Plan sinus bradycardia, will observe Critical Care: Critically Ill Patient Time spent with patient (mins): 20 MARIAELENA COSTA MD Oct 14, 2022 16:21
[2022-10-14] MEDS: FLECAINIDE 100 MG (TAMBOCOR) TAB PO SCH (20:12)
[2022-10-15] MEDS: EMPAGLIFLOZIN 10 MG TABLET (JARDIANCE) PO SCH (08:38)
[2022-10-15] MEDS: FLECAINIDE 100 MG (TAMBOCOR) TAB PO SCH ×2 (08:38→20:00)
[2022-10-15] MEDS ORDERED: SPIRONOLACTONE 25 MG (ALDACTONE) TAB PO SCH (09:00)
--- NOTE | 2022-10-15 10:21 | Cardiology Progress Note ---
Subjective Date Seen by Provider: Oct 15, 2022 Time Seen by Provider: 10:17 Subjective/Events-last exam Patient was seen at bedside, laying down comfortably, feeling better. No new complain Objective-Cardiology Exam Last Set of Vital Signs Vital Signs 10/15/22 10/15/22 08:00 09:00 Temp 36.3 Pulse 56 Resp 23 B/P (MAP) 113/104 (107) Pulse Ox 96 O2 Delivery Room Air I&O Intake and Output 10/15/22 00:00 Intake Total 740 ml Output Total 630 ml Balance 110 ml Intake Oral 740 ml Output Urine Total 630 ml # Voids 3 Daily Weight Change No General: Alert, Oriented X3, Cooperative, No Acute Distress HEENT: Atraumatic, PERRLA Lungs: Clear to Auscultation, Normal Air Movement Heart: Regular Rate, Normal S1, Normal S2, No Murmurs, Other (Bradycardia) Abdomen: Normal Bowel Sounds, Soft, No Tenderness, No Hepatosplenomegaly, No Masses Extremities: No Clubbing, No Cyanosis, No Edema, Normal Pulses, No Tenderness/Swelling Skin: No Rashes, No Breakdown, No Significant Lesion Neuro: Normal Gait, Normal Speech, Strength at 5/5 X4 Ext, Normal Tone, Sensation Intact Psych/Mental Status: Mental Status NL, Mood NL Results Lab Laboratory Tests 10/14/22 12:32 A/P-Cardiology Admission Diagnosis Bradycardia Coronary artery disease Hypertension Hyperlipidemia Assessment/Plan Bradycardia, symptomatic, probably secondary to medication Patient admitted to ICU, metoprolol was discontinued Heart rate is slightly better but still dipping to the 40s. I visited with her and discussed the management plan, recommended monitoring her overnight again and evaluate if she continued to be bradycardic we will consider doing a pacemaker. Chest pain nonspecific etiology, resolved, continue to monitor. Nonobstructive coronary artery disease per cardiac catheterization done June 2019. Paroxysmal atrial fibrillation, Had atrial flutter and fibrillation ablation done by Dr. Hinton at in January 2020. Had watchman device implanted by Dr. Hinton done in June 2020, Follow-up at . Maintained on dofetilide 250 mcg twice daily, taking Toprol-XL 50 mg twice a day. Still having multiple episodes of palpitation. Failed dofetilide, currently maintained on amiodarone. Patient had extensive ablation done on October 03, [address] Hinton, patient has a follow-up appointment later this month. Patient complaining of dizziness and lightheadedness. EKG showing sinus bradyca rdia, HR 39. She is having symptomatic bradycardia. Toprol was discontinued. We will continue monitoring heart rate 2D echo was done on September 06, 2021 with normal LV size, EF 55 to 60%, left atrium 4.5 point centimeter, mild to moderate tricuspid regurgitation, PA pressure 55 to 60 mmHg [id number] score 3, Eliquis was discontinued and January 2022. Patient has a watchman device. Palpitations, reporting improvement, occasional palpitations, overall feeling better Severe mitral regurgitation, had mitral valve clip done by Dr. Ceballos and Sonam in November 2019, recovered well and doing very well. 2D echo was done on September 06, 2021 with significant improvement. Continue to monitor Hypertension, good control on current medication. Continue to monitor Hyperlipidemia maintained on Lipitor 20 mg daily. No recent lab work done, I will evaluate lipid profile and metabolic profile Gastroesophageal reflux disease maintained on Protonix Anxiety maintained on citalopram Nonobstructive carotid artery stenosis per carotid duplex done in September 2020, I will evaluate carotid ultrasound Hypothyroidism maintained on thyroid replacement managed by Dr. Hubbard Peripheral neuropathy, followed by primary care physician LARRY HILLS MD Oct 15, 2022 10:21
[2022-10-15] MEDS: ENOXAPARIN 40 MG/0.4 ML (LOVENOX) SYR SQ SCH (14:34)
[2022-10-15] MEDS ORDERED: NS IV 500 ML 500 ML IV PRN (16:00)
[2022-10-16 05:19] LABS: CALCIUM 10.4 MG/DL (8.5-10.1)
[2022-10-16 05:23] LABS: CREATININE SERUM 1.09 MG/DL (0.60-1.30)
[2022-10-16] MEDS ORDERED: POTASSIUM CL 10MEQ/50ML IVPB 50 ML IV SCH (06:00)
[2022-10-16] MEDS ORDERED: MAGNESIUM 1 GM/100 ML IVPB 100 ML IV SCH (06:00)
[2022-10-16] MEDS ORDERED: KCL 20 MEQ TAB (K-DUR) PO SCH (06:00)
[2022-10-16] MEDS: EMPAGLIFLOZIN 10 MG TABLET (JARDIANCE) PO SCH (08:12)
[2022-10-16] MEDS: FLECAINIDE 100 MG (TAMBOCOR) TAB PO SCH (08:12)
--- NOTE | 2022-10-16 08:21 | Discharge Inst-Post CATH ---
Discharge Inst-CATH/EP Problems Reviewed?: Yes Post Cardiac Cath/EP D/C Inst Follow Up/Plan Appointment with Dr. Lozada's office in 2 weeks <b>CARDIAC CATH/EP PROCEDURE DISCHARGE INSTRUCTIONS</b> ACTIVITY * Go Home directly and rest. * Limit activity of the leg (or wrist if it was used) for 7 days including aerobics, swimming, jogging, bicycling, etc. * Restrict stair-climbing for 7 days if possible, if not, climb up with your non-cath leg, then bring together on the same step. * Avoid lifting, pushing, pulling or excessive movement of the affected extremity for 7 days. * Customary sexual activity may be resumed after 2 days-use caution not to use a position that strains or causes pain to the affected extremity. * No driving for 24 hours. * NO SMOKING. * Avoid straining for bowel movements for 7 days. * Gentle walking on level ground is allowed. * Returning to work will depend on the type of procedure and the results. Your doctor will discuss this with you. CALL YOUR DOCTOR FOR ANY OF THE FOLLOWING: *If bleeding from the puncture site occurs- Apply gentle pressure to site with clean cloth and call your doctor or EMS. * If a knot or lump forms under the skin, increases in size, or causes pain. * If bruising appears to be worsening or moving further down your leg instead of disappearing. * Temperature above 101 F. CARE OF YOUR GROIN INCISION; * Bruising or purple discoloration of the skin near the puncture site is common. * You may shower only, no bathtub bathing for 5 days. Be careful to avoid slipping as your leg may feel stiff. * If a closure device was used on your femoral artery, please see the attached guide regarding care of the device and your leg. * Leave dressing on FOR 24 hours. CARE OF YOUR WRIST INCISION; * Bruising or purple discoloration of the skin near the puncture site is common. * You may shower. * DO NOT submerge wrist. * Leave dressing on FOR 24 hours. LARRY LOZADA MD Oct 16, 2022 08:21
--- NOTE | 2022-10-16 08:27 | Cardiology Discharge Summary ---
Discharge Summary Hospital Course Hospital Course Date of Admission: Oct 14, 2022 at 11:31 Admission Diagnosis : Family Physician/Provider: AsiyaLocal Physician Date of Discharge: 10/16/22 Discharge Diagnosis: [Sinus bradycardia Chest pain Paroxysmal atrial fibrillation Hypertension Mitral regurgitation] Hospital Course: [ Bradycardia, symptomatic, probably secondary to medication Patient admitted to ICU, metoprolol was discontinued Heart rate is better after stopping metoprolol Planning for discharge and follow-up as an outpatient Chest pain nonspecific etiology, resolved, continue to monitor. Nonobstructive coronary artery disease per cardiac catheterization done June 2019. Paroxysmal atrial fibrillation, Had atrial flutter and fibrillation ablation done by Dr. Hinton at in January 2020. Had watchman device implanted by Dr. Hinton done in June 2020, Follow-up at . Maintained on dofetilide 250 mcg twice daily, taking Toprol-XL 50 mg twice a day. Still having multiple episodes of palpitation. Failed dofetilide, currently maintained on amiodarone. Patient had extensive ablation done on October 03, [address] Hinton, patient has a follow-up appointment later this month. Patient complaining of dizziness and lightheadedness. EKG showing sinus br adycardia, HR 39. She is having symptomatic bradycardia. Toprol was discontinued. We will continue monitoring heart rate 2D echo was done on September 06, 2021 with normal LV size, EF 55 to 60%, left atrium 4.5 point centimeter, mild to moderate tricuspid regurgitation, PA pressure 55 to 60 mmHg [id number] score 3, Eliquis was discontinued and January 2022. Patient has a watchman device. Palpitations, reporting improvement, occasional palpitations, overall feeling better Severe mitral regurgitation, had mitral valve clip done by Dr. Patterson in November 2019, recovered well and doing very well. 2D echo was done on September 06, 2021 with significant improvement. Continue to monitor Hypertension, good control on current medication. Continue to monitor Hyperlipidemia maintained on Lipitor 20 mg daily. No recent lab work done, I will evaluate lipid profile and metabolic profile Gastroesophageal reflux disease maintained on Protonix Anxiety maintained on citalopram Nonobstructive carotid artery stenosis per carotid duplex done in September 2020, I will evaluate carotid ultrasound Hypothyroidism maintained on thyroid replacement managed by Dr. Hubbard Peripheral neuropathy, followed by primary care physician] Labs and Pending Lab Test: Laboratory Tests 10/16/22 04:50: Sodium Level 139, Potassium Level 4.0, Chloride Level 105, Carbon Dioxide Level 25, Anion Gap 9, Blood Urea Nitrogen 25H, Creatinine 1.09, Estimat Glomerular Filtration Rate 53, BUN/Creatinine Ratio 23, Glucose Level 89, Calcium Level 10.4H Microbiology 10/14/22 MRSA Screen - Final, Complete MRSA not isolated Home Meds Active Reported Vitamin D3 (Cholecalciferol (Vitamin D3)) 25 Mcg (1000 Unit) Capsule 25 Mcg PO DAILY Tylenol Extra Strength (Acetaminophen) 500 Mg Tablet 1,000 Mg PO Q8H PRN Aspirin EC (Aspirin) 81 Mg Tablet.dr 81 Mg PO DAILY Flecainide Acetate 100 Mg Tablet 100 Mg PO BID Levothyroxine Sodium 200 Mcg Tablet 200 Mcg PO DAILY TAKES 50MCG +200MCG TOGETHER Levothyroxine Sodium 50 Mcg Tablet 50 Mcg PO DAILY TAKES 50MCG +200MCG TOGETHER Jardiance (Empagliflozin) 10 Mg Tablet 10 Mg PO DAILY Spironolactone 25 Mg Tablet 25 Mg PO DAILY Venlafaxine HCl 37.5 Mg Tab 37.5 Mg PO DAILY Atorvastatin Calcium 20 Mg Tablet 20 Mg PO DAILY Metoprolol Succinate 50 Mg Tab.er.24h 75 Mg PO DAILY TAKES 1 & (50MG) TAB Assessment/Pt DC Instructions Sinus bradycardia Paroxysmal atrial fibrillation Hypertension Hyperlipidemia Discharge Diet: Cardiac Diet Discharge Physical Examination Allergies: Coded Allergies: Sulfa (Sulfonamide Antibiotics) (Verified Allergy, Unknown, 06/01/06) General Appearance: No Apparent Distress, WD/WN HEENT: PERRL/EOMI, TMs Normal, Normal ENT Inspection, Pharynx Normal Respiratory: Chest Non Tender, Lungs Clear, Normal Breath Sounds, No Accessory Muscle Use, No Respiratory Distress Cardiovascular: Regular Rate, Rhythm, No Edema, No Gallop, No JVD, Systolic Murmur Gastrointestinal: Normal Bowel Sounds, No Organomegaly, No Pulsatile Mass, Non Tender Clinical Quality Measures Admission Status Admission Status: Inpatient Order (span 2 midnights) Reason for Inpatient Admission: Bradycardia LARRY HILLS MD Oct 16, 2022 08:27
== END 2022-10-16 09:15 | disposition home or self-care (01) | DRG 310 ==
LOC: ICU 11:31
PROVIDERS: ADMIT Internal Medicine Cardiovascular Disease; ATTEND Internal Medicine Cardiovascular Disease
PROC: 5A09357 Assistance with Respiratory Ventilation, Less than 24 Consecutive Hours, Continuous Positive Airway Pressure (ICD-10-PCS; principal; 2022-10-14)
DX: R00.1 Bradycardia, unspecified (principal); T46.2X5A Adverse effect of other antidysrhythmic drugs, initial encounter; R07.9 Chest pain, unspecified; I25.10 Atherosclerotic heart disease of native coronary artery without angina pectoris; I48.0 Paroxysmal atrial fibrillation; I48.92 Unspecified atrial flutter; I34.0 Nonrheumatic mitral (valve) insufficiency; I10 Essential (primary) hypertension; E78.5 Hyperlipidemia, unspecified; K21.9 Gastro-esophageal reflux disease without esophagitis; F41.9 Anxiety disorder, unspecified; I65.29 Occlusion and stenosis of unspecified carotid artery; E03.9 Hypothyroidism, unspecified; G62.9 Polyneuropathy, unspecified; Z79.82 Long term (current) use of aspirin; Z79.899 Other long term (current) drug therapy; Z79.890 Hormone replacement therapy; F15.90 Other stimulant use, unspecified, uncomplicated
CPT/HCPCS: 36415; 80048; 80053; 84443; 85027; 87081; 93005

== ENCOUNTER 2022-10-19 09:50 | Emergency (ER) | payer MEDICARE ==
[~2022-10-19] VITALS: Ht 180 cm; Wt 137.6 kg
[~2022-10-19 09:50] MED LIST changes: +ACET-2267 PO; +ASPI-1238 PO; +CHOL10007 PO; +CHOL200059 PO; +EMPA10TA PO; +LEVO200T6 PO; +LEVO50TA6 PO; +SPIR25TA5 PO; +VNL37.5T PO
--- NOTE | 2022-10-19 10:11 | ED Cardiac General ---
History of Present Illness General Chief Complaint: Cardiac/General Problems Stated Complaint: HEART Nursing Triage Note: PT TO RM 6 PER W/C. PT STATES IS IN A-FIB, PT STATES HAS PRESSURE IN CHEST 10/11.PT CO OF DIAPHORISIS, SOA, NAUSEA. PT WAS RELEASED FROM HOSP ON THURSDAY. Source: patient Exam Limitations: no limitations History of Present Illness Date Seen by Provider: Oct 19, 2022 Time Seen by Provider: 09:58 Initial Comments Patient is a 72-year-old female who presents to the emergency room with a chief complaint of chest pressure. Patient was recently in the hospital last Thursday through . She was taken off of her metoprolol due to low heart rates. She states ever since being in the hospital she has not felt well. For the last 24 hours she has had some chest pressure intermittently. She feels fatigued, has some shortness of air, she is nauseated and was dry heaving at home. She was concerned because her heart rate was in the upper 90s when she got out of bed at around 730 this morning. She states she is compliant with her daily med ications. She tells me she has had previous heart caths with no coronary artery disease noted. She has had ablation and Watchman procedure. In 10 days she has a follow-up appointment with her assistant professor of german at . She states that she has felt some chills but no fever. No productive cough. She does have runny nose she attributes to allergies. No diarrhea, intermittently has a little blood in her stool she attributes to hemorrhoids. No dysuria, urgency or frequency. She has chronic lymphedema in her lower extremities but no unusual swelling. Timing/Duration: 12-24 hours Severity: moderate ("6") Location: other (Left-sided chest "tightness") Activities at Onset: rest NTG SL SPOTLIGHT OPERATOR: No ASA po SPOTLIGHT OPERATOR: No Associated Systoms: Fever/Chills (Chills without fever), Malaise, Nausea/Vomiting, Shortness of Air, Weakness Allergies and Home Medications Allergies Coded Allergies: Sulfa (Sulfonamide Antibiotics) (Verified Allergy, Unknown, 06/01/06) Patient Home Medication List Home Medication List Reviewed: Yes Acetaminophen (Tylenol Extra Strength) 500 Mg Tablet, 1,000 MG PO Q8H PRN for PAIN-MILD (1-4), (Reported) Entered as Reported by: PATRICIA MEDRANO on 10/14/22 145 Aspirin (Aspirin EC) 81 Mg Tablet.dr, 81 MG PO DAILY, (Reported) Entered as Reported by: PATRICIA MEDRANO on 10/14/22 145 Atorvastatin Calcium (Atorvastatin Calcium) 20 Mg Tablet, 20 MG PO DAILY, (Reported) Entered as Reported by: PACO EATON on 09/14/19 0956 Cholecalciferol (Vitamin D3) (Vitamin D3) 25 Mcg (1000 Unit) Capsule, 25 MCG PO DAILY, (Reported) Entered as Reported by: PATRICIA MEDRANO on 10/14/22 145 Empagliflozin (Jardiance) 10 Mg Tablet, 10 MG PO DAILY, (Reported) Entered as Reported by: PATRICIA MEDRANO on 10/14/22 145 Flecainide Acetate (Flecainide Acetate) 100 Mg Tablet, 100 MG PO BID, (Reported) Entered as Reported by: PATRICIA MEDRANO on 10/14/221454 Levothyroxine Sodium (Levothyroxine Sodium) 50 Mcg Tablet, 50 MCG PO DAILY, (Reported) Entered as Reported by: PATRICIA MEDRANO on 10/14/22 145 Levothyroxine Sodium (Levothyroxine Sodium) 200 Mcg Tablet, 200 MCG PO DAILY, (Reported) Entered as Reported by: PATRICIA MEDRANO on 10/14/22 145 Spironolactone (Spironolactone) 25 Mg Tablet, 25 MG PO DAILY, (Reported) Entered as Reported by: PATRICIA MEDRANO on 10/14/22 145 Venlafaxine HCl (Venlafaxine HCl) 37.5 Mg Tab, 37.5 MG PO DAILY, (Reported) Entered as Reported by: PATRICIA MEDRANO on 10/14/22 145 Discontinued Medications Apixaban (Eliquis) 5 Mg Tablet, 5 MG PO BID Discontinued Reason: No Longer Taking Prescribed by: LARRY LOZADA on 07/03/19 0851 Cholecalciferol (Vitamin D3) (Vitamin D3) 2,000 Unit Tablet, 2,000 UNIT PO DAILY, (Reported) Discontinued Reason: No Longer Taking Entered as Reported by: DARSHAN ERICKSON on 06/07/19 1506 Cholecalciferol (Vitamin D3) (Vitamin D3) 50,000 Unit Capsule, 50,000 UNIT PO TWICE MONTHLY, (Reported) Discontinued Reason: No Longer Taking Entered as Reported by: DARSHAN ERICKSON on 06/07/19 1506 Cholecalciferol (Vitamin D3) (Vitamin D3) 50 Mcg (2000 Unit) Tablet, 50 MCG PO, (Reported) Discontinued Reason: No Longer Taking Entered as Reported by: PATRICIA MEDRANO on 10/14/22 1455 Citalopram Hydrobromide (Citalopram HBr) 20 Mg Tablet, 20 MG PO DAILY, (Report ed) Discontinued Reason: No Longer Taking Entered as Reported by: DARSHAN ERICKSON on 06/07/19 1506 Cyanocobalamin (Vitamin B-12) (Vitamin B-12) 500 Mcg Tablet, 500 MCG PO DAILY, (Reported) Discontinued Reason: No Longer Taking Entered as Reported by: DARSHAN ERICKSON on 06/07/19 1506 Estrogens, Conjugated (Premarin) 0.9 Mg Tablet, 0.9 MG PO DAILY, (Reported) Discontinued Reason: No Longer Taking Entered as Reported by: DARSHAN ERICKSON on 06/07/19 1506 Flecainide Acetate (Flecainide Acetate) 100 Mg Tablet, 50 MG PO BID Discontinued Reason: No Longer Taking Prescribed by: LARRY LOZADA on 07/03/19 0851 Gabapentin (Gabapentin) 300 Mg Capsule, 300 MG PO TID, (Reported) Discontinued Reason: No Longer Taking Entered as Reported by: DARSHAN ERICKSON on 06/07/19 1506 Hydrochlorothiazide (Hydrochlorothiazide) 25 Mg Tablet, 25 MG PO DAILY, (Reported) Discontinued Reason: No Longer Taking Entered as Reported by: DARSHAN ERICKSON on 06/07/19 1506 Levothyroxine Sodium (Levothyroxine Sodium) 125 Mcg Tablet, 250 MCG PO DAILY, (Reported) Discontinued Reason: No Longer Taking Entered as Reported by: DARSHAN ERICKSON on 06/07/19 1506 Meloxicam (Meloxicam) 15 Mg Tablet, 15 MG PO DAILY, (Reported) Discontinued Reason: No Longer Taking Entered as Reported by: DARSHAN ERICKSON on 06/07/19 1506 Metoprolol Succinate (Metoprolol Succinate) 50 Mg Tab.er.24h, 75 MG PO DAILY, (Reported) Entered as Reported by: DOC ZENG on 07/02/19 1418 Pantoprazole Sodium (Pantoprazole Sodium) 40 Mg Tablet.dr, 40 MG PO DAILY, (Reported) Discontinued Reason: No Longer Taking Entered as Reported by: DARSHAN ERICKSON on 06/07/19 1506 Review of Systems Review of Systems Constitutional: see HPI, malaise EENTM: Other (Rhinorrhea) Respiratory: Shortness of Air Cardiovascular: Chest Pain ("Tightness" left-sided, nonradiating) Gastrointestinal: Nausea, Vomiting Genitourinary: No Symptoms Reported Musculoskeletal: no symptoms reported Skin: no symptoms reported Psychiatric/Neurological: No Symptoms Reported All Other Systems Reviewed Negative Unless Noted: Yes Past Odgavob-Evbzrw-Sxdhgi Hx Patient Social History Tobacco Use?: No Substance use?: No Alcohol Use?: No Pt feels they are or have been: No Immunizations Up To Date First/Initial COVID19 Vaccinat: COVID VACC X2 Second COVID19 Vaccination Kaushik: COVID VACC X2 Third COVID19 Vaccination Date: COVID VACC X2 Past Medical History Surgery/Hospitalization HX: AFIB, THYROID, HTN Surgeries: Yes Hysterectomy, Joint Replacement, Orthopedic, Thyroidectomy Respiratory: Yes Sleep Apnea Currently Using CPAP: Yes Cardiac: Yes (mitral valve leaky) Atrial Fibrillation, High Cholesterol, Hypertension, Valvular Heart Disease Neurological: No Reproductive Disorders: Yes (OVARIAN CYST/FIBROID TUMOR/ENDOMETRIOSIS/COMPLETE HYSTERECTOMY) PEDIATRICIAN History: Hysterectomy Sexually Transmitted Disease: No Genitourinary: No Gastrointestinal: Yes Gastroesophageal Reflux, Hemorrhoids Musculoskeletal: Yes Endocrine: Yes Hypothyroidsim HEENT: Yes Cataract Cancer: Yes Thyroid Did You Recieve Any Treatments: Yes What Type of Treatment Did You: Radiation, Surgical Intervention Psychosocial: No Integumentary: No Blood Disorders: No Family Medical History FH: Raynaud's phenomenon G8 SISTER, Onset:Unknown FH: hypothyroidism G8 SISTER, Onset:Unknown FH: lung cancer 19 FATHER, , Onset:50's - 60 FH: macular degeneration 19 MOTHER, Onset:Unknown FH: multiple sclerosis G8 BROTHER, Onset:50's - 60 FH: stroke 19 FATHER, , Onset:50's - 60 Hypertension 19 FATHER, , Onset:40's - 50 19 MOTHER, Onset:Unknown TIAs G8 SISTER, Onset:20's - 25 No Pertinent Family Hx Physical Exam Vital Signs Vital Signs - First Documented 10/19/22 09:55 Pulse 86 Resp 36 B/P (MAP) 187/98 (127) Pulse Ox 97 Capillary Refill : Less Than 3 Seconds Height, Weight, BMI Height: 6'1.00" Weight: 240lbs. oz. 108.307397ta; 42.00 BMI Method: General Appearance: No Apparent Distress, WD/WN, Obese HEENT: PERRL/EOMI Neck: Normal Inspection Respiratory: Lungs Clear, Normal Breath Sounds, No Accessory Muscle Use, No Respiratory Distress Cardiovascular: Normal Peripheral Pulses, Irregularly Irregular (Intermittently regular) Gastrointestinal: Normal Bowel Sounds, Non Tender, Soft Extremity: Normal Inspection, Normal Range of Motion, Non Tender, No Calf Tenderness Neurologic/Psychiatric: Alert, Oriented x3, No Motor/Sensory Deficits, Normal Mood/Affect, review coordinator II-XII Norm as Tested Skin: Normal Color, Warm/Dry Progress/Results/Core Measures Results/Orders Lab Results Laboratory Tests Test 10/19/22 10:00 10/19/22 11:34 Range/Units White Blood Count 7.7 4.3-11.0 10^3/uL Red Blood Count 4.73 3.80-5.11 10^6/uL Hemoglobin 12.0 11.5-16.0 g/dL Hematocrit 39 35-52 % Mean Corpuscular Volume 82 80-99 fL Mean Corpuscular Hemoglobin 25 25-34 pg Mean Corpuscular Hemoglobin Concent 31 L 32-36 g/dL Red Cell Distribution Width 16.8 H 10.0-14.5 % Platelet Count 236 130-400 10^3/uL Mean Platelet Volume 11.0 9.0-12.2 fL Immature Granulocyte % (Auto) 0 % Neutrophils (%) (Auto) 53 42-75 % Lymphocytes (%) (Auto) 35 12-44 % Monocytes (%) (Auto) 9 0-12 % Eosinophils (%) (Auto) 2 0-10 % Basophils (%) (Auto) 1 0-10 % Neutrophils # (Auto) 4.1 1.8-7.8 10^3/uL Lymphocytes # (Auto) 2.7 1.0-4.0 10^3/uL Monocytes # (Auto) 0.7 0.0-1.0 10^3/uL Eosinophils # (Auto) 0.1 0.0-0.3 10^3/uL Basophils # (Auto) 0.0 0.0-0.1 10^3/uL Immature Granulocyte # (Auto) 0.0 0.0-0.1 10^3/uL Prothrombin Time 13.0 12.2-14.7 SEC INR Comment 1.0 0.8-1.4 Activated Partial Thromboplast Time 33 24-35 SEC Sodium Level 141 135-145 MMOL/L Potassium Level 3.7 3.6-5.0 MMOL/L Chloride Level 106 98-107 MMOL/L Carbon Dioxide Level 24 21-32 MMOL/L Anion Gap 11 5-14 MMOL/L Blood Urea Nitrogen 33 H 7-18 MG/DL Creatinine 1.09 0.60-1.30 MG/DL Estimat Glomerular Filtration Rate 53 BUN/Creatinine Ratio 30 Glucose Level 98 70-105 MG/DL Calcium Level 10.1 8.5-10.1 MG/DL Corrected Calcium 10.0 8.5-10.1 MG/DL Magnesium Level 1.7 1.6-2.4 MG/DL Total Bilirubin 0.9 0.1-1.0 MG/DL Aspartate Amino Transf (AST/SGOT) 24 5-34 U/L Alanine Aminotransferase (ALT/SGPT) 23 0-55 U/L Alkaline Phosphatase 145 H 40-136 U/L Troponin I < 0.028 < 0.028 <0.028 NG/ML Total Protein 7.1 6.4-8.2 GM/DL Albumin 4.1 3.2-4.5 GM/DL My Orders Orders - LUIS EDUARDO IBARRA MD Ekg Tracing (10/19/22 09:58) Cbc With Automated Diff (10/19/22 10:11) Magnesium (10/19/22 10:11) Chest 1 View, Ap/Pa Only (10/19/22 10:11) Comprehensive Metabolic Panel (10/19/22 10:11) Protime With Inr (10/19/22 10:11) Partial Thromboplastin Time (10/19/22 10:11) O2 (10/19/22 10:11) Monitor-Rhythm Ecg Trace Only (10/19/22 10:11) Ed Iv/Invasive Line Start (10/19/22 10:11) Troponin I Jaden (10/19/22 10:11) Troponin I Early (10/19/22 11:29) Vital Signs/I&O 10/19/22 09:55 Pulse 86 Resp 36 B/P (MAP) 187/98 (127) Pulse Ox 97 Blood Pressure Mean: 127 Progress Progress Note #1: Time: 11:29 Progress Note feeling much better. will repeat troponin Progress Note #2: Time: 12:30 Initial ECG Impression Date: Oct 19, 2022 Initial ECG Impression Time: 10:01 Initial ECG Rate: 72 Initial ECG Rhythm: Normal Sinus Comment Normal sinus with occasional premature supraventricular complexes. Slightly prolonged NE interval at 209. QRS is 124, QTc is 455. No overt ST segment elevation or depression is noted Diagnostic Imaging Diagonstic Imaging: Xray Plain Films/CT/US/NM/MRI: chest Comments [facility] [place], [place] NAME: NICK HARRY [facility] REC#: [id number] PT STATUS: REG ER : 1950 PHYSICIAN: LUIS EDUARDO IBARRA MD ADMIT DATE: 10/19/22/ER Signed Date of Exam:10/19/22 CHEST 1 VIEW, AP/PA ONLY EXAMINATION: Chest 1 view HISTORY: Chest pain COMPARISON: 07/18/2021 FINDINGS: A mitraclip device is present. There is mild bibasilar atelectasis. Otherwise, the lungs are clear without edema or pneumonia. No pleural effusion or pneumothorax. Heart size is normal. IMPRESSION: 1. Mild atelectasis, otherwise clear lungs. Dictated by: Dictated on workstation # [id number] Dict: 10/19/22 1020 Trans: 10/19/22 1025 [facility] [id number] Interpreted by: SUSHANT ROBERTS MD Electronically signed by: SUSHANT ROBERTS MD 10/19/22 1025 Departure Communication (Admissions) Time/Spoke to Consulting Phy: 11:[address] Middleton (cardiology) Impression Primary Impression: betablocker withdrawal Additional Impression: Paroxysmal atrial fibrillation Disposition: 01 HOME, SELF-CARE Condition: Improved Departure-Patient Inst. Decision time for Depature: 12:29 Referrals: LARRY LOZADA MD NO,LOCAL PHYSICIAN (PCP) Primary Care Physician Patient Instructions: Atrial Fibrillation and Atrial Flutter ED Add. Discharge Instructions: Continue your daily medications as prescribed by Dr. Lozada. Drink plenty of fluids and rest as needed. You may be experiencing some symptoms since stopping your metoprolol. The symptoms should improve over the next few days. If you notice any increased chest pressure or pain, shortness of breath, feelings of lightheadedness or dizziness or have a persistent elevated heart rate above 110 please return to the emergency department for reevaluation. Please keep your follow-up appointment at . Copy Copies To 1: LARRY LOZADA MD, KATHRYN M MD Oct 19, 2022 10:11
[2022-10-19 10:19] LABS: BASOPHILS % (AUTO) 1 % (0-10); EOSINOPHILS # (AUTO) 0.1 10^3/uL (0.0-0.3); EOSINOPHILS % (AUTO) 2 % (0-10); HEMATOCRIT 39 % (35-52); LYMPHOCYTES # (AUTO) 2.7 10^3/uL (1.0-4.0); LYMPHOCYTES % (AUTO) 35 % (12-44); MEAN CORPUSCULAR HEMOGLOBIN 25 pg (25-34); MEAN CORPUSCULAR HGB CONC 31 g/dL (32-36); MEAN CORPUSCULAR VOLUME 82 fL (80-99); MONOCYTES # (AUTO) 0.7 10^3/uL (0.0-1.0); MONOCYTES % (AUTO) 9 % (0-12); NEUTROPHILS # (AUTO) 4.1 10^3/uL (1.8-7.8); NEUTROPHILS % (AUTO) 53 % (42-75); PLATELET COUNT 236 10^3/uL (130-400); WHITE BLOOD COUNT 7.7 10^3/uL (4.3-11.0)
--- NOTE | 2022-10-19 10:23 | Diagnostic Imaging Report ---
EXAMINATION: Chest 1 view HISTORY: Chest pain COMPARISON: 07/18/2021 FINDINGS: A mitraclip device is present. There is mild bibasilar atelectasis. Otherwise, the lungs are clear without edema or pneumonia. No pleural effusion or pneumothorax. Heart size is normal. IMPRESSION: 1. Mild atelectasis, otherwise clear lungs. Dictated by: Dictated on workstation # [id number]
[2022-10-19 10:24] LABS: ALBUMIN 4.1 GM/DL (3.2-4.5); CHLORIDE 106 MMOL/L (98-107); POTASSIUM 3.7 MMOL/L (3.6-5.0); SODIUM 141 MMOL/L (135-145)
[2022-10-19 10:26] LABS: CALCIUM 10.1 MG/DL (8.5-10.1)
[2022-10-19 10:27] LABS: GLUCOSE 98 MG/DL (70-105); TOTAL PROTEIN 7.1 GM/DL (6.4-8.2)
[2022-10-19 10:28] LABS: CARBON DIOXIDE 24 MMOL/L (21-32)
[2022-10-19 10:29] LABS: BILIRUBIN,TOTAL 0.9 MG/DL (0.1-1.0)
[2022-10-19 10:30] LABS: ALKALINE PHOSPHATASE 145 U/L (40-136); CREATININE SERUM 1.09 MG/DL (0.60-1.30); GFR ESTIMATED 53
[2022-10-19 10:31] LABS: BUN/CREATININE RATIO 30
[2022-10-19 10:33] LABS: ALANINE AMINOTRANSFERASE 23 U/L (0-55); MAGNESIUM 1.7 MG/DL (1.6-2.4)
[2022-10-19 12:37] VITALS: BP 156/83
== END 2022-10-19 12:37 | disposition home or self-care (01) ==
LOC: EDUNIT# 09:50 → ER 09:52
DX: R07.89 Other chest pain (principal); T44.7X5A Adverse effect of beta-adrenoreceptor antagonists, initial encounter; G47.30 Sleep apnea, unspecified; I48.0 Paroxysmal atrial fibrillation; I10 Essential (primary) hypertension; E66.9 Obesity, unspecified; Z99.89 Dependence on other enabling machines and devices; Z68.41 Body mass index [BMI] 40.0-44.9, adult; Z91.148 Patient's other noncompliance with medication regimen for other reason
CPT/HCPCS: 36415; 71045; 80053; 83735; 84484; 85025; 85610; 85730; 93005; 93041

== ENCOUNTER 2022-11-10 14:03 | Outpatient (RCR) | payer MEDICARE | END 2022-12-01 | disposition home or self-care (01) | PROVIDERS: ATTEND Nurse Practitioner | DX: N39.41 Urge incontinence (principal); I11.9 Hypertensive heart disease without heart failure ==

== ENCOUNTER 2022-12-29 16:20 | Outpatient (RCR) | payer MEDICARE | END 2023-01-01 | disposition home or self-care (01) | PROVIDERS: ATTEND Nurse Practitioner | DX: N39.41 Urge incontinence (principal); I10 Essential (primary) hypertension ==

== ENCOUNTER 2023-01-06 13:43 | Outpatient (RCR) | payer MEDICARE | END 2023-01-06 16:15 | disposition home or self-care (01) | PROVIDERS: ATTEND Nurse Practitioner | DX: N39.41 Urge incontinence (principal); I10 Essential (primary) hypertension ==

== ENCOUNTER → 2023-01-07 | Outpatient (CLI) | payer MEDICARE ==
--- NOTE | 2023-01-07 11:24 | Diagnostic Imaging Report ---
CLINICAL INDICATION: Patient fell on 12/05/2022. Patient having vision issues and headache. EXAM: Axial CT scan of the brain performed without IV contrast with sagittal and coronal reformatted images. Auto Exposure Controls were utilized during the CT exam to meet ALARA standards for radiation dose reduction. COMPARISON: CT angiogram of the head/neck dated 03/29/2021. FINDINGS: There is no evidence of acute cerebral infarct, intracranial hemorrhage, or gross mass effect. The brain parenchymal volume appears appropriate for patient's age. There is mild chronic small vessel ischemic disease again noted. There is normal bell-white matter distinction. There is no significant midline shift or herniation. There is no evidence of hydrocephalus. The basal cisterns are unremarkable. The skull, extracranial soft tissue, and orbits are unremarkable. The paranasal sinuses are unremarkable. Temporal bones show no significant abnormality. IMPRESSION: There is no CT evidence of acute intracranial process. There is no intracranial hemorrhage or skull fracture. Dictated by: Dictated on workstation # [id number]
== END ==
LOC: RAD 11:02
PROVIDERS: ATTEND Registered Nurse Critical Care Medicine
DX: G44.52 New daily persistent headache (NDPH) (principal); S00.03XD Contusion of scalp, subsequent encounter; I51.9 Heart disease, unspecified; E03.9 Hypothyroidism, unspecified; S51.812D Laceration without foreign body of left forearm, subsequent encounter; F32.9 Major depressive disorder, single episode, unspecified; H53.143 Visual discomfort, bilateral; W18.39XD Other fall on same level, subsequent encounter; E78.2 Mixed hyperlipidemia; M54.89 Other dorsalgia
CPT/HCPCS: 70450

== ENCOUNTER → 2023-01-21 | Outpatient (CLI) | payer MEDICARE ==
[~2023-01-21] MED LIST changes: +GADOTERATE 0.5 MMOL/ML (CLARISCAN) 20 ML VIAL IV ONE
--- NOTE | 2023-01-21 11:07 | Diagnostic Imaging Report ---
PROCEDURE: MR imaging of the brain with and without contrast. TECHNIQUE: Multiplanar, multisequence MR imaging of the brain was performed with and without contrast. INDICATION: Recent fall and head injury, complaining of visual problems. The ventricles and sulci are appropriate for the patient's age. Moderate periventricular and subcortical white matter changes are noted consistent with chronic microvascular ischemia. No diffusion restriction is identified. The normal expected flow-voids within the carotid siphons are seen. No acute intra-axial or extra-axial hemorrhage is detected. No abnormal enhancement following contrast administration is identified. The corpus callosum is unremarkable. The sella and parasellar structures are unremarkable. IMPRESSION: Changes of chronic microvascular ischemia. The study is otherwise unremarkable. No acute feature is detected. Dictated by: Dictated on workstation # [id number]
== END ==
LOC: RAD 09:46
PROVIDERS: ATTEND Nurse Practitioner Family
DX: S06.0X0D Concussion without loss of consciousness, subsequent encounter (principal); G44.311 Acute post-traumatic headache, intractable; S00.03XD Contusion of scalp, subsequent encounter; E03.9 Hypothyroidism, unspecified; I51.9 Heart disease, unspecified; I48.19 Other persistent atrial fibrillation; M54.9 Dorsalgia, unspecified; H53.143 Visual discomfort, bilateral
CPT/HCPCS: 70553